=== PATIENT | female | born 1945 | race Caucasian/White ===

== ENCOUNTER 2017-11-18 14:54 | Inpatient (IN) | payer MEDICARE ==
--- NOTE | 2017-11-18 15:27 | ED Physician Documentation ---
History of Present Illness - Stated complaint Stated Complaint: PE ROLL OUT - Chief complaint Chief Complaint: Resp - Additonal information Additional information: hx from pt 72 female sick for abput 3 weeks first dyspnea then dry cough weak all over no fever no chest pain no abd pain no NV one epsiode of diarrhea no leg pain no leg swelling strong fhx CAD no personal CAD no lung dz no travel no sick contacts ex smoker seen in clinic initially impression was URI txed with augmentin but clinician felt pt HR concerning and she was borderline hypoxic so sent to ED for further eval Review of Systems Constitutional: reports: Fatigue. denies: Fever, Chills Throat: denies: Sore throat Cardiac: denies: Chest pain / pressure Respiratory: reports: Dyspnea, Cough. denies: Hemoptysis, Wheezing GI: reports: Diarrhea (X1). denies: Abdominal Pain, Nausea, Vomiting, Bloody / black stool : denies: Dysuria Endocrine: denies: Easy bruising / bleeding Immunocompromised: denies: Immunocompromised PD PAST MEDICAL HISTORY - Present Medications Home Medications: Ambulatory Orders Medication Instructions Recorded Confirmed Cholecalciferol (Vitamin D3) 4,000 units PO DAILY 11/18/17 11/18/17 [Vitamin D3] Glucosamine Sulfate Dipot Chlr 1,000 mg PO BID 11/18/17 11/18/17 [Glucosamine Sulfate] Multivitamin [Theragran] 1 tab PO DAILY 11/18/17 11/18/17 [place]-3/Dha/Epa/Fish Oil [Fish Oil 1 gm PO DAILY 11/18/17 11/18/17 1,000 mg Softgel] Zinc 50 mg PO DAILY 11/18/17 11/18/17 - Allergies Allergies/Adverse Reactions: Allergies Allergy/AdvReac Type Severity Reaction Status Date / Time acetaminophen [From Percocet] Allergy Rash Verified 11/18/17 15:13 oxycodone [From Percocet] Allergy Rash Verified 11/18/17 15:13 PD ED PE NORMAL - Vitals Vital signs reviewed: Yes (tachy tachypneic hypoxic) - General General: Alert and oriented X 3 - Cardiac Cardiac: RRR - Respiratory Respiratory: No respiratory distress, Other (tachypneic but clear) - Abdomen Abdomen: Soft, Non tender - Derm Derm: Normal color - Extremities Extremities: No edema, No calf tenderness / cord - Neuro Neuro: Alert and oriented X 3, No motor deficit Eye Opening: Spontaneous Motor: Obeys Commands Verbal: Oriented GCS Score: 15 Results - Vitals Vitals: Vital Signs - 24 hr 11/18/17 11/18/17 11/18/17 15:09 15:27 16:18 Temperature 36.2 C L Heart Rate 116 H 142 H 135 H Respiratory 18 26 H 17 Rate Blood Pressure 145/92 H 150/92 H O2 Saturation 93 93 94 Oxygen O2 Source Nasal cannula Oxygen Flow Rate 2 - EKG (time done) 1520 Rate: Rate (enter#) (144) Rhythm: Sinus tachycardia (probaly - culd be exctopic atrial source, Ps visible best in I II) Intervals: Normal AK Ischemia: ST elevation c/w ischemia (inferior with associated Q waves) - Labs Labs: Laboratory Tests 11/18/17 11/18/17 11/18/17 15:35 15:35 15:35 WBC 11.1 H RBC 4.72 Hgb 13.5 Hct 40.7 MCV 86.4 MCH 28.7 MCHC 33.2 RDW 14.3 Plt Count 346 MPV 7.6 L Neut # (Auto) 7.7 H Lymph # (Auto) 2.2 Haakon # (Auto) 0.8 Eos # (Auto) 0.3 Baso # (Auto) 0.1 Absolute Nucleated RBC 0.00 Nucleated RBC % 0.0 PT 12.8 H INR 1.1 APTT 26.1 Sodium 137 Potassium 4.4 Chloride 100 L Carbon Dioxide 27 Anion Gap 10.0 BUN 15 Creatinine 0.7 Estimated GFR (MDRD) 82 L Glucose 153 H Lactic Acid Calcium 9.6 Total Bilirubin 0.8 AST 27 ALT 29 Alkaline Phosphatase 89 Troponin I B-Natriuretic Peptide Total Protein 8.4 H Albumin 3.6 Globulin 4.8 H Albumin/Globulin Ratio 0.8 L Lipase 37 11/18/17 11/18/17 11/18/17 15:35 15:35 15:35 WBC RBC Hgb Hct MCV MCH MCHC RDW Plt Count MPV Neut # (Auto) Lymph # (Auto) Haakon # (Auto) Eos # (Auto) Baso # (Auto) Absolute Nucleated RBC Nucleated RBC % PT INR APTT Sodium Potassium Chloride Carbon Dioxide Anion Gap BUN Creatinine Estimated GFR (MDRD) Glucose Lactic Acid 1.5 Calcium Total Bilirubin AST ALT Alkaline Phosphatase Troponin I < 0.04 B-Natriuretic Peptide 52 Total Protein Albumin Globulin Albumin/Globulin Ratio Lipase - Rads (name of study) CXR Radiology: See rad report (multifocal pna vs masses) CTPA Radiology: See rad report (multifocal mod to large consolidative masslike opacifications OREN and phan lower lobes, severe multifocal pna vs malgnancy. Also lyphadenopathy infectious vs mets. SMall L pleural effuson. Motrion artifact in the R lower lobe arteries and subsegmental arteries precludes eval for PE - d/w rad and she notes some "dark spots" but due to motrion cannot determine if PE or not. After discussion we agreed best plan of action would be to tx pt for infection and for PE and reimage with another CTPA in about 2 days to help clarify if infectious (will be improving) or malignant and hopefully with improved resp status will have less motion artifact and PE concern can be clarified) PD MEDICAL DECISION MAKING - ED course ED course: CXR = infection vs mass so got CT PA even CT cannot clarify if infection of mass furthermore cannot rule out PE due to resp motion artifact after d/w hospitalist and radiology agree plan to tx for infection and PE and redo CTPA in about 48 to clarify if PE or not and infectious vs malignant assuming this is infectious pt meets criteria for sepsis - gave 30 cc/kg IVG and rocephin zmax for ICU level CAP admittedly she could be tachy from PE, hypoxia etc as well - even with CT cannot confirm an infectious source EMR does not allow possible sepsis so added that to diagnoses but in reality remains to be confirmed spoke to hospitalist at 1805 - Sepsis Event Vital Signs: Vital Signs - 24 hr 11/18/17 11/18/17 11/18/17 15:09 15:27 16:18 Temperature 36.2 C L Heart Rate 116 H 142 H 135 H Respiratory 18 26 H 17 Rate Blood Pressure 145/92 H 150/92 H O2 Saturation 93 93 94 Oxygen O2 Source Nasal cannula Oxygen Flow Rate 2 Departure - Departure Disposition: 66 [facility] DC/Xfer Clinical Impression: Hypoxia, Lung mass, Abnormal EKG Pneumonia Qualifiers: Pneumonia type: due to unspecified organism Laterality: bilateral Lung location : unspecified part of lung Qualified Code(s): J18.9 - Pneumonia, unspecified organism Sepsis Qualifiers: Sepsis type: sepsis due to unspecified organism Qualified Code(s): A41.9 - Sepsis, unspecified organism
[2017-11-18] MEDS ORDERED: SODIUM CHLORIDE 0.9% 3,000 ML IV ONE (15:39)
--- NOTE | 2017-11-18 15:41 | XRAY Report ---
Procedure Date: 11/18/2017 Accession Number: [id number] / [id number] Procedure: XR - Chest 1 View X-Ray CPT Code: 79016 FULL RESULT: EXAM: CHEST RADIOGRAPHY EXAM DATE: 11/18/2017 03:32 PM. CLINICAL HISTORY: Chest pain. Shortness of breath. COMPARISON: None. TECHNIQUE: 1 view. FINDINGS: Lungs/Pleura: Focal opacity in the right perihilar region is suspicious for a mass measuring just over 4 cm. Focal consolidation is present medially in the left upper lung zone. Left basilar atelectasis or infiltrate and elevation of the left hemidiaphragm. Mediastinum: Within exam limitations, the cardiomediastinal contour is normal. Other: None. IMPRESSION: 1. Findings suspicious for a right perihilar mass. 2. Focal consolidation in the left upper lung zone medially and left basilar airspace disease. Underlying mass is not excluded. 3. Further evaluation of bilateral lung abnormalities is recommended with CT chest. RADIA
[2017-11-18 15:43] LABS: BASOPHILS # (AUTO) 0.1 10^3/uL (0.0-0.1); EOSINOPHILS # (AUTO) 0.3 10^3/uL (0.0-0.7); HGB - HEMOGLOBIN 13.5 g/dL (12.0-16.0); LYMPHOCYTES # (AUTO) 2.2 10^3/uL (1.5-3.5); NEUTROPHILS # (AUTO) 7.7 10^3/uL (1.5-6.6)
[2017-11-18] MEDS ORDERED: cefTRIAXone 1 GM in SODIUM CHLORIDE 0.9% MINIBAG 100 ML IV STA (15:44)
[2017-11-18] MEDS ORDERED: AZITHROMYCIN INJ 500 MG in SODIUM CHLORIDE 0.9% 250 ML IV STA (15:44)
[2017-11-18 15:47] LABS: BASOPHILS % (AUTO) 0.6 %; LYMPHOCYTES % (AUTO) 19.6 %; MEAN CORPUSCULAR HEMOGLOBIN 28.7 pg (27.0-31.0); MEAN CORPUSCULAR HGB CONC 33.2 g/dL (32.0-36.0); MEAN CORPUSCULAR VOLUME 86.4 fL (81.0-99.0); MEAN PLATELET VOLUME 7.6 fL (7.9-10.8); MONOCYTES # (AUTO) 0.8 10^3/uL (0.0-1.0); MONOCYTES % (AUTO) 7.2 %; NEUTROPHILS % (AUTO) 69.6 %; PLT - PLATELET COUNT 346 10^3/uL (130-450); RED BLOOD COUNT 4.72 10^6/uL (4.20-5.40); RED CELL DISTRIBUTION WIDTH 14.3 % (12.0-15.0); WHITE BLOOD COUNT 11.1 x10^3/uL (4.8-10.8)
[2017-11-18 15:49] LABS: INR 1.1 (0.8-1.2); PT - PROTHROMBIN TIME 12.8 secs (9.9-12.6)
[2017-11-18 15:56] LABS: ALBUMIN 3.6 g/dL (3.2-5.5); ALBUMIN/GLOBULIN RATIO 0.8 (1.0-2.2); BILIRUBIN,TOTAL 0.8 mg/dL (0.2-1.0); CALCIUM 9.6 mg/dL (8.5-10.3); CREATININE 0.7 mg/dL (0.4-1.0); TOTAL PROTEIN 8.4 g/dL (6.7-8.2)
[2017-11-18] MEDS ORDERED: IOPAMIDOL-300 100 ML VIAL ONE (16:59)
[2017-11-18] MEDS ORDERED: IOPAMIDOL-300 100 ML VIAL IVP ONE (17:30)
--- NOTE | 2017-11-18 17:58 | CT Report ---
Procedure Date: 11/18/2017 Accession Number: [id number] / [id number] Procedure: CT - Chest Angio (PE) CPT Code: FULL RESULT: EXAM: CT ANGIOGRAM CHEST EXAM DATE: 11/18/2017 05:27 PM. CLINICAL HISTORY: Shortness of air, hypoxia, tachycardia, tachypneic. COMPARISON: Chest 1 view 11/18/2017. TECHNIQUE: Routine helical imaging was performed through the chest in the pulmonary arterial phase. IV Contrast: 80 mL, Isovue 300. Reconstructions: Coronal 3-D MIP reconstructions.Sagittal and coronal. In accordance with CT protocol optimization, one or more of the following dose reduction techniques were utilized for this exam: automated exposure control, adjustment of mA and/or KV based on patient size, or use of iterative reconstructive technique. FINDINGS: Mediastinum: No thoracic aortic aneurysm or dissection. Prominent heart size. Coronary artery calcification. Right hilar lymphadenopathy 1.8 cm. Another right low hilar lymphadenopathy 1.4 cm. Low subcarinal borderline lymphadenopathy 1 cm. Pulmonary arteries: Motion artifact limited, especially at the right lower lobe and right lower lobe segmental pulmonary emboli are not excluded. Otherwise, no definite pulmonary emboli seen. Lungs: Large consolidated masslike opacity seen in the left upper lobe extending to the left hilum surrounding left upper lobe vessels and bronchi. Moderate consolidative masslike opacification located more centrally in the left lower lobe extending to the left hilum with air bronchograms. Moderate right lower lobe consolidative masslike opacification centrally in the right lower lobe. Very small left pleural effusion. No pneumothorax. Motion artifact limited. Upper abdomen: No acute findings. No acute bone findings. IMPRESSION: 1. Multifocal moderate to large consolidative masslike opacifications seen in the left upper lobe and bilateral lower lobes, large in the left upper lobe, could represent severe multifocal pneumonia versus lung malignancy. Follow-up is recommended. Mediastinal and right hilar lymphadenopathy, could be reactive versus metastasis. 2. Very small left pleural effusion. 3. Pulmonary arteries: Motion artifact limited, especially at the right lower lobe and right lower lobe segmental pulmonary emboli are not excluded. Otherwise, definite pulmonary emboli seen. RADIA ADDENDUM: 11/18/17 18:22 3. Pulmonary arteries: Motion artifact limited, especially at the right lower lobe and right lower lobe segmental pulmonary emboli are not excluded. Otherwise, no definite pulmonary emboli seen.
[2017-11-18] MEDS ORDERED: IBUPROFEN 600 MG TABLET PO PRN (18:28)
[2017-11-18] MEDS ORDERED: SODIUM CHLORIDE FLUSH 0.9% 10 ML SYRINGE IVP PRN (18:28)
[2017-11-18] MEDS ORDERED: ENOXAPARIN 100 MG/ML SYRINGE SUBQ STA (18:28)
[2017-11-18] MEDS ORDERED: cefTRIAXone 2 GM in SODIUM CHLORIDE 0.9% MINIBAG 100 ML IV STA (18:33)
[2017-11-18] MEDS: D5.45NS W/20 MEQ KCL 1,000 ML IV SCH (20:44)
[2017-11-19] MEDS: SODIUM CHLORIDE FLUSH 0.9% 10 ML SYRINGE IVP SCH ×4 (03:29→23:38)
[2017-11-19] MEDS: D5.45NS W/20 MEQ KCL 1,000 ML IV SCH ×2 (05:56→16:32)
[2017-11-19 07:29] LABS: MEAN CORPUSCULAR HGB CONC 33.3 g/dL (32.0-36.0); MEAN CORPUSCULAR VOLUME 87.1 fL (81.0-99.0); MEAN PLATELET VOLUME 7.2 fL (7.9-10.8); RED BLOOD COUNT 4.13 10^6/uL (4.20-5.40); RED CELL DISTRIBUTION WIDTH 14.8 % (12.0-15.0); WHITE BLOOD COUNT 7.7 x10^3/uL (4.8-10.8)
[2017-11-19 07:39] LABS: CALCIUM 8.6 mg/dL (8.5-10.3); CREATININE 0.5 mg/dL (0.4-1.0)
--- NOTE | 2017-11-19 08:33 | HISTORY & PHYSICAL EXAMINATION ---
Chief Complaint - Chief Complaint Chief Complaint: shortness of breath History of Present Illness - Admitted From Admitted From:: Home - History Obtained From History obtained from: Patient, ED physician History - Past Medical History Cardiovascular: reports: None Respiratory: reports: None Neuro: reports: None Endocrine/Autoimmune: reports: None GI: reports: None : reports: None HEENT: reports: None Psych: reports: None Musculoskeletal: reports: None Derm: reports: None MRSA Hx?: No Other Past Medical History: The patient is someone who does not see doctors. Her last medical visit was about 8 years ago when she had an appendectomy, and the last time before that was 30 or more years ago. - Past Surgical History General: reports: Appendectomy /SLEEP MANAGER: reports: Hysterectomy HEENT: reports: Tonsil/Adenoidectomy - Family & Social History Family History: Mother: , Diabetes, Type 2, PA, Father: , PA, Sister: , Brother: , Other family: Family History Comment/Other: The patient comes from a family that did not discuss medical problems very often. Her parents both from heart attacks and her mother had diabetes. There are 2 sisters and 3 brothers who have already previously of causes unknown to the patient. A daughter is alive but has had a history of breast cancer and a son from lung cancer. Living arrangement: At home Living Situation: Alone - Substance History Use: Uses substance without health or social issues: Alcohol Abuse: Recurrent use of substance despite neg consequences: NONE Dependence: Experiences withdrawal or developed tolerances: NONE Tobacco Details: Cigarettes (The patient quit smoking 3 years ago and has a 57 year history of smoking 3/4-1 pack per day.) Meds/Allgy - Home Medications Home Medications: Ambulatory Orders Medication Instructions Recorded Confirmed Cholecalciferol (Vitamin D3) 4,000 units PO DAILY 11/18/17 11/18/17 [Vitamin D3] Glucosamine Sulfate Dipot Chlr 1,000 mg PO BID 11/18/17 11/18/17 [Glucosamine Sulfate] Multivitamin [Theragran] 1 tab PO DAILY 11/18/17 11/18/17 [place]-3/Dha/Epa/Fish Oil [Fish Oil 1 gm PO DAILY 11/18/17 11/18/17 1,000 mg Softgel] Zinc 50 mg PO DAILY 11/18/17 11/18/17 - Allergies Allergies/Adverse Reactions: Allergies Allergy/AdvReac Type Severity Reaction Status Date / Time acetaminophen [From Percocet] Allergy Rash Verified 11/18/17 15:13 oxycodone [From Percocet] Allergy Rash Verified 11/18/17 15:13 Review of Systems - Constitutional Constitutional: reports: Fatigue, Weakness. denies: Fever, Chills, Malaise - Eyes Eyes: denies: Pain, Irritation, Amaurosis, Blurred vision, Dipolpia - Ears, Nose & Throat Ears, Nose & Throat: denies: Ear pain, Hearing loss, Hearing aids, Tinnitus, Vertigo, Nasal pain, Nasal discharge - Cardiovascular Cariovascular: reports: Exertional dyspnea, Decr. exercise tolerance. denies: Irregular heart rate, Palpitations, Chest pain, Edema, Syncope - Respiratory Respiratory: reports: SOB at rest, SOB with exertion. denies: Cough, Sputum production, Wheezing, Snoring, Hemoptysis, Orthopnea - Gastrointestinal Gastrointestinal: denies: Abdominal pain, Abdominal distention, Constipation, Diarrhea, Change in bowel habits, Rectal bleeding - Genitourinary Genitourinary: denies: Dysuria, Frequency, Urgency, Hematuria - Musculoskeletal Musculoskeletal: denies: Muscle pain, Back pain, Muscle aches, Stiffness - Integumentary Integumentary: denies: Rash, Pruritis, Lesions, Dryness - Neurological Neurological: denies: General weakness, Focal weakness, Headache, Dizziness - Psychiatric Psychiatric: denies: Depression, Anxiety, Suicidal, Hallucinations - Endocrine Endocrine: denies: Polyuria, Polydypsia, Polyphagia - Hematologic/Lymphatic Hematologic/Lymphatic: denies: Anemia, Bruising, Petechiae, Lymphadenopathy - All Other Systems All Other Systems: reports: Reviewed and negative Exam - Vital Signs Reviewed Vital Signs: Yes Vital Signs: Vital Signs x48h Temp Pulse Resp BP Pulse Ox 11/19/17 07:57 36.9 C 93 18 156/73 H 95 11/19/17 06:00 94 20 184/90 H 96 11/19/17 04:14 36.8 C 96 18 176/81 H 93 - Physical Exam General Appearance: positive: No acute distress, Alert Eyes Bilateral: positive: Normal inspection, PERRL, EOMI, No lid inflammation, Conjunctivae nml, No scleral icterus ENT: positive: Pharynx nml, No signs of dehydration, Other (poor dentition). negative: ENT inspection nml Neck: positive: Nml inspection, Thyroid nml, No JVD, Trachea midline. negative : Thyromegaly Respiratory: positive: Chest non-tender, No respiratory distress, Breath sounds nml. negative: Wheezes, Rales, Rhonchi Cardiovascular: positive: Regular rate & rhythm, No murmur, No gallop Peripheral Pulses: positive: 1+ Abdomen: positive: Non-tender, No organomegaly, Nml bowel sounds, No distention. negative: Guarding, Rebound Back: positive: Nml inspection. negative: CVA tenderness (R), CVA tenderness (L ) Skin: positive: Color nml, No rash, Warm, Dry. negative: Cyanosis Extremities: positive: Non-tender, Full ROM, Nml appearance, No pedal edema Neurologic/Psychiatric: positive: Oriented x3, CN's nml (2-12), Motor nml, Sensation nml, Mood/affect nml Conclusion/Plan - Problem List (1) Shortness of breath at rest Conclusion/Plan: The patient is currently short of breath but is responding well to supplemental oxygen. The cause of her shortness of breath is either bilateral pneumonia or likely malignancy with postobstructive pneumonia. Chest x-ray and CTA of the chest failed to show any definite underlying cause and could not differentiate between the bilateral pneumonia and the masses. CTA was negative for any pulmonary emboli. I spoke with the [facility] radiologist and the radiologist at [facility] and both are in agreement that the course of treatment should be to treat the pneumonia with hopes of resolution and if this does not resolve to refer the patient for bronchoscopy/biopsy. I have started the patient on azithromycin and Rocephin daily, and will obtain serial chest x-rays. If there is no resolution or improvement in 3 days I will order a bronchoscopy. - Lab Results Lab results reviewed: Yes Fish Bones: 11/19/17 07:20 11/19/17 07:20 - Diagnostic Imaging Results Diagnostic Imaging Results: positive: Discussed with radiologist (I spoke with the [facility] radiologist and the radiologist over at [facility] and both agree that the course of treatment should be treating pneumonia and looking for resolution and if this does not occur to refer the patient for bronchoscopy/biopsy.) Diagnostic Imaging Results Comments: EXAM: CT ANGIOGRAM CHEST EXAM DATE: 11/18/2017 05:27 PM. CLINICAL HISTORY: Shortness of air, hypoxia, tachycardia, tachypneic. COMPARISON: Chest 1 view 11/18/2017. TECHNIQUE: Routine helical imaging was performed through the chest in the pulmonary arterial phase. IV Contrast: 80 mL, Isovue 300. Reconstructions: Coronal 3-D MIP reconstructions.Sagittal and coronal. In accordance with CT protocol optimization, one or more of the following dose reduction techniques were utilized for this exam: automated exposure control, adjustment of mA and/or KV based on patient size, or use of iterative reconstructive technique. FINDINGS: Mediastinum: No thoracic aortic aneurysm or dissection. Prominent heart size. Coronary artery calcification. Right hilar lymphadenopathy 1.8 cm. Another right low hilar lymphadenopathy 1.4 cm. Low subcarinal borderline lymphadenopathy 1 cm. Pulmonary arteries: Motion artifact limited, especially at the right lower lobe and right lower lobe segmental pulmonary emboli are not excluded. Otherwise, no definite pulmonary emboli seen. Lungs: Large consolidated masslike opacity seen in the left upper lobe extending to the left hilum surrounding left upper lobe vessels and bronchi. Moderate consolidative masslike opacification located more centrally in the left lower lobe extending to the left hilum with air bronchograms. Moderate right lower lobe consolidative masslike opacification centrally in the right lower lobe. Very small left pleural effusion. No pneumothorax. Motion artifact limited. Upper abdomen: No acute findings. No acute bone findings. IMPRESSION: 1. Multifocal moderate to large consolidative masslike opacifications seen in the left upper lobe and bilateral lower lobes, large in the left upper lobe, could represent severe multifocal pneumonia versus lung malignancy. Follow-up is recommended. Mediastinal and right hilar lymphadenopathy, could be reactive versus metastasis. 2. Very small left pleural effusion. 3. Pulmonary arteries: Motion artifact limited, especially at the right lower lobe and right lower lobe segmental pulmonary emboli are not excluded. Otherwise, definite pulmonary emboli seen. RADIA ADDENDUM: 11/18/17 18:22 3. Pulmonary arteries: Motion artifact limited, especially at the right lower lobe and right lower lobe segmental pulmonary emboli are not excluded. Otherwise, no definite pulmonary emboli seen. EXAM: CHEST RADIOGRAPHY EXAM DATE: 11/18/2017 03:32 PM. CLINICAL HISTORY: Chest pain. Shortness of breath. COMPARISON: None. TECHNIQUE: 1 view. FINDINGS: Lungs/Pleura: Focal opacity in the right perihilar region is suspicious for a mass measuring just over 4 cm. Focal consolidation is present medially in the left upper lung zone. Left basilar atelectasis or infiltrate and elevation of the left hemidiaphragm. Mediastinum: Within exam limitations, the cardiomediastinal contour is normal. Other: None. IMPRESSION: 1. Findings suspicious for a right perihilar mass. 2. Focal consolidation in the left upper lung zone medially and left basilar airspace disease. Underlying mass is not excluded. 3. Further evaluation of bilateral lung abnormalities is recommended with CT chest. Core Measures - Anticipated LOS I expect patient to be DC'd or transferred within 96 hours.: Yes - DVT/VTE - Prophylaxis VTE/DVT Device ordered at admit?: Yes
[2017-11-19] MEDS: LISINOPRIL 20 MG TABLET PO SCH (09:31)
[2017-11-19] MEDS: POLYETHYLENE GLYCOL 3350 17 GM PACKET PO SCH (09:32)
[2017-11-19] MEDS: IPRATROPIUM/ALBUTEROL 3 ML NEB INH SCH ×3 (10:35→18:08)
[2017-11-19] MEDS: AZITHROMYCIN INJ 500 MG in SODIUM CHLORIDE 0.9% 250 ML IV SCH (16:32)
[2017-11-19] MEDS: cefTRIAXone 2 GM in SODIUM CHLORIDE 0.9% MINIBAG 100 ML IV SCH (18:25)
--- NOTE | 2017-11-19 18:55 | PROVIDER PROGRESS NOTE ---
Subjective - Prog Note Date Prog Note Date: 11/19/17 Prog Note Time: 18:00 - Subjective Subjective: Patient is short of breath but better with supplemental oxygen. She denies any pain, fevers, chills, or any other new problems. Current Medications - Current Medications Current Medications: Active Medications Generic Name Dose Route Start Last Admin Trade Name Freq PRN Reason Stop Dose Admin Albuterol/Ipratropium 3 ml 11/19/17 11:00 11/19/17 18:08 Duoneb INH 3 ml RTQID ROLDAN Administration Azithromycin 500 mg/ Sodium 250 mls @ 250 mls/hr 11/19/17 16:00 11/19/17 17: 46 Chloride IV Infused Q24H ROLDAN Infusion Potassium Chloride/Dextrose/Sod Cl 1,000 mls @ 100 mls/hr 11/18/17 19:00 09/01 16:32 D5.45ns W/20 Meq Kcl IV 100 mls/hr .Q10H ROLDAN Administration Ceftriaxone Sodium 2 gm/ 100 mls @ 200 mls/hr 11/19/17 18:00 11/19/17 18:25 Sodium Chloride IV 200 mls/hr Q24H ROLDAN Administration Ibuprofen 600 mg 11/18/17 18:28 Motrin PO Q6HR PRN Pain 1 to 4 Lisinopril 20 mg 11/19/17 09:00 11/19/17 09:31 Zestril PO 20 mg DAILY ROLDAN Administration Polyethylene Glycol 17 gm 11/19/17 09:00 11/19/17 09:32 Miralax PO Not Given DAILY ROLDAN Sodium Chloride 10 ml 11/18/17 18:28 Normal Saline Flush 0.9% IVP PRN PRN NEEDED PER PROVIDER ORDERS Sodium Chloride 10 ml 11/19/17 01:00 11/19/17 15:35 Normal Saline Flush 0.9% IVP Not Given 0100,0900,1700 ROLDAN Cholecalciferol (Vitamin D3) [Vitamin D3] 4,000 units PO DAILY 11/18/17 Glucosamine Sulfate Dipot Chlr [Glucosamine Sulfate] 1,000 mg PO BID 11/18/17 Multivitamin [Theragran] 1 tab PO DAILY 11/18/17 [place]-3/Dha/Epa/Fish Oil [Fish Oil 1,000 mg Softgel] 1 gm PO DAILY 11/18/17 Zinc 50 mg PO DAILY 11/18/17 Objective - Vital Signs/Intake & Output Reviewed Vital Signs: Yes Vital Signs: Vital Signs x48h Temp Pulse Pulse Resp BP Pulse Ox 11/19/17 18:09 81 17 11/19/17 15:58 37.0 C 89 20 149/66 H 97 11/19/17 15:08 82 17 11/19/17 11:30 37.0 C 88 20 148/63 H 95 Intake & Output: Intake & Output 11/16/17 11/17/17 11/18/17 11/19/17 23:59 23:59 23:59 23:59 Intake Total 3200 3880 Balance 3200 3880 - Objective General Appearance: positive: No acute distress, Alert Eyes Bilateral: positive: Normal inspection, PERRL, EOMI, No lid inflammation, Conjunctivae nml, No scleral icterus ENT: positive: ENT inspection nml, Pharynx nml, No signs of dehydration Neck: positive: Nml inspection, Thyroid nml, No JVD, Trachea midline. negative : Thyromegaly Respiratory: positive: Chest non-tender, No respiratory distress, Other (Lung sounds are diminished in all eric). negative: Wheezes, Rales, Rhonchi Cardiovascular: positive: Regular rate & rhythm, No murmur, No gallop Abdomen: positive: Non-tender, No organomegaly, Nml bowel sounds, No distention. negative: Guarding, Rebound Back: positive: Nml inspection. negative: CVA tenderness (R), CVA tenderness (L ) Skin: positive: Color nml, No rash, Warm, Dry. negative: Cyanosis Extremities: positive: Non-tender, Full ROM, Nml appearance, No pedal edema Neurologic/Psychiatric: positive: Oriented x3, CN's nml (2-12), Motor nml, Sensation nml, Mood/affect nml - Lab Results Fish Bones: 11/19/17 07:20 11/19/17 07:20 Other Labs: Lab Results x24hrs 11/19/17 11/19/17 Range/Units 07:20 07:20 WBC 7.7 (4.8-10.8) x10^3/uL RBC 4.13 L (4.20-5.40) 10^6/uL Hgb 12.0 (12.0-16.0) g/dL Hct 35.9 L (37.0-47.0) % MCV 87.1 (81.0-99.0) fL MCH 29.0 (27.0-31.0) pg MCHC 33.3 (32.0-36.0) g/dL RDW 14.8 (12.0-15.0) % Plt Count 270 (130-450) 10^3/uL MPV 7.2 L (7.9-10.8) fL Sodium 136 (135-145) mmol/L Potassium 4.2 (3.5-5.0) mmol/L Chloride 104 (101-111) mmol/L Carbon Dioxide 26 (21-32) mmol/L Anion Gap 6.0 (6-13) BUN 10 (6-20) mg/dL Creatinine 0.5 (0.4-1.0) mg/dL Estimated GFR (MDRD) 121 (>89) Glucose 115 H (70-100) mg/dL Calcium 8.6 (8.5-10.3) mg/dL ABX Reporting Has patient been on IV antibiotics over the past 48 hours?: Yes Assessment/Plan - Problem List (1) Shortness of breath at rest Impression: The patient is currently short of breath but is responding well to supplemental oxygen. The cause of her shortness of breath is either bilateral pneumonia or likely malignancy with postobstructive pneumonia. Chest x-ray and CTA of the chest failed to show any definite underlying cause and could not differentiate between the bilateral pneumonia and the masses. CTA was negative for any pulmonary emboli. I spoke with the hospital radiologist and the radiologist at [facility] and both are in agreement that the course of treatment should be to treat the pneumonia with hopes of resolution and if this does not resolve to refer the patient for bronchoscopy/biopsy. I have started the patient on azithromycin and Rocephin daily, and will obtain serial chest x-rays. If there is no resolution or improvement in 3 days I will order a bronchoscopy. (2) COPD (chronic obstructive pulmonary disease) Impression: The patient has never been formally diagnosed with COPD but she is short of breath and has a 50+ pack year history of smoking. She quit smoking 3 years ago. We will give her bronchodilators and nebulizer treatments as needed. (3) Hypertension Impression: Patient's blood pressure has been elevated since her admission. I started her on lisinopril earlier, and we will add hydrochlorothiazide to this regimen.
[2017-11-19] MEDS: hydroCHLOROthiazide 12.5 MG CAPSULE PO SCH (19:27)
[2017-11-20] MEDS: D5.45NS W/20 MEQ KCL 1,000 ML IV SCH ×3 (03:26→20:49)
[2017-11-20 06:05] LABS: CREATININE 0.6 mg/dL (0.4-1.0)
[2017-11-20 06:10] LABS: MEAN CORPUSCULAR HEMOGLOBIN 29.1 pg (27.0-31.0); MEAN CORPUSCULAR HGB CONC 33.2 g/dL (32.0-36.0); MEAN CORPUSCULAR VOLUME 87.8 fL (81.0-99.0); MEAN PLATELET VOLUME 7.3 fL (7.9-10.8); RED BLOOD COUNT 4.13 10^6/uL (4.20-5.40); RED CELL DISTRIBUTION WIDTH 14.5 % (12.0-15.0); WHITE BLOOD COUNT 8.2 x10^3/uL (4.8-10.8)
[2017-11-20] MEDS: IPRATROPIUM/ALBUTEROL 3 ML NEB INH SCH ×4 (07:11→20:25)
[2017-11-20] MEDS: LISINOPRIL 20 MG TABLET PO SCH (08:14)
[2017-11-20] MEDS: hydroCHLOROthiazide 12.5 MG CAPSULE PO SCH (08:14)
[2017-11-20] MEDS: POLYETHYLENE GLYCOL 3350 17 GM PACKET PO SCH (08:14)
[2017-11-20] MEDS: SODIUM CHLORIDE FLUSH 0.9% 10 ML SYRINGE IVP SCH ×3 (08:16→23:57)
[2017-11-20] MEDS: AZITHROMYCIN INJ 500 MG in SODIUM CHLORIDE 0.9% 250 ML IV SCH (16:27)
--- NOTE | 2017-11-20 16:50 | PROVIDER PROGRESS NOTE ---
Subjective - Prog Note Date Prog Note Date: 11/20/17 Prog Note Time: 16:45 - Subjective Pt reports feeling: Improved Subjective: Patient says she is breathing easier and just feels a little bit stronger and better today. She denies any fevers or chills, pain, or any other new problems. Current Medications - Current Medications Current Medications: Active Medications Generic Name Dose Route Start Last Admin Trade Name Freq PRN Reason Stop Dose Admin Albuterol/Ipratropium 3 ml 11/19/17 11:00 11/20/17 15:20 Duoneb INH 3 ml RTQID ROLDAN Administration Hydrochlorothiazide 12.5 mg 11/19/17 19:00 11/20/17 08:14 Hydrodiuril PO 12.5 mg DAILY ROLDAN Administration Azithromycin 500 mg/ Sodium 250 mls @ 250 mls/hr 11/19/17 16:00 11/20/17 16: 27 Chloride IV 250 mls/hr Q24H ROLDAN Administration Potassium Chloride/Dextrose/Sod Cl 1,000 mls @ 100 mls/hr 11/18/17 19:00 10/02 12:34 D5.45ns W/20 Meq Kcl IV 100 mls/hr .Q10H ROLDAN Administration Ceftriaxone Sodium 2 gm/ 100 mls @ 200 mls/hr 11/19/17 18:00 11/19/17 19:03 Sodium Chloride IV Infused Q24H ROLDAN Infusion Ibuprofen 600 mg 11/18/17 18:28 11/20/17 03:27 Motrin PO 600 mg Q6HR PRN Administration Pain 1 to 4 Lisinopril 20 mg 11/19/17 09:00 11/20/17 08:14 Zestril PO 20 mg DAILY ROLDAN Administration Polyethylene Glycol 17 gm 11/19/17 09:00 11/20/17 08:14 Miralax PO Not Given DAILY ROLDAN Sodium Chloride 10 ml 11/18/17 18:28 Normal Saline Flush 0.9% IVP PRN PRN NEEDED PER PROVIDER ORDERS Sodium Chloride 10 ml 11/19/17 01:00 11/20/17 15:45 Normal Saline Flush 0.9% IVP Not Given 0100,0900,1700 ROLDAN Cholecalciferol (Vitamin D3) [Vitamin D3] 4,000 units PO DAILY 11/18/17 Glucosamine Sulfate Dipot Chlr [Glucosamine Sulfate] 1,000 mg PO BID 11/18/17 Multivitamin [Theragran] 1 tab PO DAILY 11/18/17 [place]-3/Dha/Epa/Fish Oil [Fish Oil 1,000 mg Softgel] 1 gm PO DAILY 11/18/17 Zinc 50 mg PO DAILY 11/18/17 Objective - Vital Signs/Intake & Output Reviewed Vital Signs: Yes Vital Signs: Vital Signs x48h Temp Pulse Pulse Resp BP Pulse Ox 11/20/17 16:21 37.1 C 90 18 142/67 H 94 11/20/17 15:21 80 16 11/20/17 13:00 37.2 C 82 18 122/48 L 96 11/20/17 11:29 90 18 Intake & Output: Intake & Output 11/17/17 11/18/17 11/19/17 11/20/17 23:59 23:59 23:59 23:59 Intake Total 3200 4280 2733.333 Balance 3200 4280 2733.333 - Objective General Appearance: positive: No acute distress, Alert Eyes Bilateral: positive: Normal inspection, PERRL, EOMI, No lid inflammation, Conjunctivae nml, No scleral icterus ENT: positive: ENT inspection nml, Pharynx nml, No signs of dehydration Neck: positive: Nml inspection, Thyroid nml, No JVD, Trachea midline. negative : Thyromegaly Respiratory: positive: Chest non-tender, No respiratory distress, Breath sounds nml. negative: Wheezes, Rales, Rhonchi Cardiovascular: positive: Regular rate & rhythm, No murmur, No gallop Abdomen: positive: Non-tender, No organomegaly, Nml bowel sounds, No distention. negative: Guarding, Rebound Back: positive: Nml inspection. negative: CVA tenderness (R), CVA tenderness (L ) Skin: positive: Color nml, No rash, Warm, Dry. negative: Cyanosis Extremities: positive: Non-tender, Full ROM, Nml appearance, No pedal edema Neurologic/Psychiatric: positive: Oriented x3, CN's nml (2-12), Motor nml, Sensation nml, Mood/affect nml - Lab Results Fish Bones: 11/20/17 05:43 11/20/17 05:43 Other Labs: Lab Results x24hrs 11/20/17 11/20/17 Range/Units 05:43 05:43 WBC 8.2 (4.8-10.8) x10^3/uL RBC 4.13 L (4.20-5.40) 10^6/uL Hgb 12.0 (12.0-16.0) g/dL Hct 36.3 L (37.0-47.0) % MCV 87.8 (81.0-99.0) fL MCH 29.1 (27.0-31.0) pg MCHC 33.2 (32.0-36.0) g/dL RDW 14.5 (12.0-15.0) % Plt Count 274 (130-450) 10^3/uL MPV 7.3 L (7.9-10.8) fL Sodium 138 (135-145) mmol/L Potassium 4.2 (3.5-5.0) mmol/L Chloride 103 (101-111) mmol/L Carbon Dioxide 27 (21-32) mmol/L Anion Gap 8.0 (6-13) BUN 6 (6-20) mg/dL Creatinine 0.6 (0.4-1.0) mg/dL Estimated GFR (MDRD) 98 (>89) Glucose 120 H (70-100) mg/dL Calcium 9.0 (8.5-10.3) mg/dL - Diagnostic Imaging Diagnostic Imaging Results: positive: Final report reviewed Diagnostic Imaging Comments: EXAM: CT ANGIOGRAM CHEST EXAM DATE: 11/18/2017 05:27 PM. CLINICAL HISTORY: Shortness of air, hypoxia, tachycardia, tachypneic. COMPARISON: Chest 1 view 11/18/2017. TECHNIQUE: Routine helical imaging was performed through the chest in the pulmonary arterial phase. IV Contrast: 80 mL, Isovue 300. Reconstructions: Coronal 3-D MIP reconstructions.Sagittal and coronal. In accordance with CT protocol optimization, one or more of the following dose reduction techniques were utilized for this exam: automated exposure control, adjustment of mA and/or KV based on patient size, or use of iterative reconstructive technique. FINDINGS: Mediastinum: No thoracic aortic aneurysm or dissection. Prominent heart size. Coronary artery calcification. Right hilar lymphadenopathy 1.8 cm. Another right low hilar lymphadenopathy 1.4 cm. Low subcarinal borderline lymphadenopathy 1 cm. Pulmonary arteries: Motion artifact limited, especially at the right lower lobe and right lower lobe segmental pulmonary emboli are not excluded. Otherwise, no definite pulmonary emboli seen. Lungs: Large consolidated masslike opacity seen in the left upper lobe extending to the left hilum surrounding left upper lobe vessels and bronchi. Moderate consolidative masslike opacification located more centrally in the left lower lobe extending to the left hilum with air bronchograms. Moderate right lower lobe consolidative masslike opacification centrally in the right lower lobe. Very small left pleural effusion. No pneumothorax. Motion artifact limited. Upper abdomen: No acute findings. No acute bone findings. IMPRESSION: 1. Multifocal moderate to large consolidative masslike opacifications seen in the left upper lobe and bilateral lower lobes, large in the left upper lobe, could represent severe multifocal pneumonia versus lung malignancy. Follow-up is recommended. Mediastinal and right hilar lymphadenopathy, could be reactive versus metastasis. 2. Very small left pleural effusion. 3. Pulmonary arteries: Motion artifact limited, especially at the right lower lobe and right lower lobe segmental pulmonary emboli are not excluded. Otherwise, definite pulmonary emboli seen. RADIA ADDENDUM: 11/18/17 18:22 3. Pulmonary arteries: Motion artifact limited, especially at the right lower lobe and right lower lobe segmental pulmonary emboli are not excluded. Otherwise, no definite pulmonary emboli seen. EXAM: CHEST RADIOGRAPHY EXAM DATE: 11/18/2017 03:32 PM. CLINICAL HISTORY: Chest pain. Shortness of breath. COMPARISON: None. TECHNIQUE: 1 view. FINDINGS: Lungs/Pleura: Focal opacity in the right perihilar region is suspicious for a mass measuring just over 4 cm. Focal consolidation is present medially in the left upper lung zone. Left basilar atelectasis or infiltrate and elevation of the left hemidiaphragm. Mediastinum: Within exam limitations, the cardiomediastinal contour is normal. Other: None. IMPRESSION: 1. Findings suspicious for a right perihilar mass. 2. Focal consolidation in the left upper lung zone medially and left basilar airspace disease. Underlying mass is not excluded. 3. Further evaluation of bilateral lung abnormalities is recommended with CT chest. ABX Reporting Has patient been on IV antibiotics over the past 48 hours?: Yes Assessment/Plan - Problem List (1) Shortness of breath at rest Impression: The patient is currently short of breath but is responding well to supplemental oxygen and the antibiotics. The cause of her shortness of breath is either bilateral pneumonia or malignancy with postobstructive pneumonia. Chest x-ray and CTA of the chest failed to show any definite underlying cause and could not differentiate between the bilateral pneumonia and the masses. CTA was negative for any pulmonary emboli. I spoke with the hospital radiologist and the radiologist at [facility] and both are in agreement that the course of treatment should be to treat the pneumonia with hopes of resolution and if this does not resolve to refer the patient for bronchoscopy/biopsy. I have started the patient on azithromycin and Rocephin daily, and will obtain serial chest x- rays. If there is no resolution or improvement in 3 days I will order a bronchoscopy. (2) COPD (chronic obstructive pulmonary disease) Impression: The patient has never been formally diagnosed with COPD but she is short of breath and has a 50+ pack year history of smoking. She quit smoking 3 years ago. We will give her bronchodilators and nebulizer treatments as needed. (3) Hypertension Impression: Patient's blood pressure has been elevated since her admission. I started her on lisinopril And hydrochlorothiazide. Her blood pressures have still been elevated. I will add amlodipine.
[2017-11-20] MEDS: cefTRIAXone 2 GM in SODIUM CHLORIDE 0.9% MINIBAG 100 ML IV SCH (17:57)
[2017-11-20] MEDS ORDERED: amLODIPine 5 MG TABLET PO SCH (18:00)
[2017-11-20] MEDS ORDERED: IPRATROPIUM/ALBUTEROL 3 ML NEB INH PRN (22:26)
[2017-11-21] MEDS: D5.45NS W/20 MEQ KCL 1,000 ML IV SCH (06:15)
[2017-11-21 06:35] LABS: CALCIUM 9.3 mg/dL (8.5-10.3); CREATININE 0.5 mg/dL (0.4-1.0)
[2017-11-21 06:41] LABS: HGB - HEMOGLOBIN 12.4 g/dL (12.0-16.0); MEAN CORPUSCULAR HEMOGLOBIN 28.8 pg (27.0-31.0); MEAN CORPUSCULAR HGB CONC 32.8 g/dL (32.0-36.0); MEAN CORPUSCULAR VOLUME 87.8 fL (81.0-99.0); MEAN PLATELET VOLUME 7.3 fL (7.9-10.8); RED BLOOD COUNT 4.3 10^6/uL (4.20-5.40); RED CELL DISTRIBUTION WIDTH 14.4 % (12.0-15.0); WHITE BLOOD COUNT 9.1 x10^3/uL (4.8-10.8)
[2017-11-21] MEDS: diltiaZEM CD 120 MG CAPSULE PO SCH ×2 (08:09→09:54)
--- NOTE | 2017-11-21 08:39 | XRAY Report ---
Procedure Date: 11/21/2017 Accession Number: [id number] / [id number] Procedure: XR - Chest 1 View X-Ray CPT Code: 43106 FULL RESULT: EXAM: Chest 1 View X-Ray DATE: 11/21/2017 8:22 AM CLINICAL HISTORY: Evaluate whether pneumonia is improving COMPARISON: CT chest 11/18/2017 TECHNIQUE: Single view of the chest. FINDINGS: Bilateral pulmonary masslike consolidation is again seen. There is elevation of the left hemidiaphragm suggesting volume loss. There is no pneumothorax. There is no large pleural effusion, small pleural effusion cannot entirely excluded. The cardiomediastinal silhouette is stable. IMPRESSION: Pneumonia of this radiographic extent would typically be expected to clinically declare itself. While pneumonia is not radiographically excluded, imaging suggests underlying masslike features. In the absence of a significant white blood cell count or fever, recommend tissue diagnosis. RADIA
[2017-11-21] MEDS: LISINOPRIL 20 MG TABLET PO SCH (09:54)
[2017-11-21] MEDS: POLYETHYLENE GLYCOL 3350 17 GM PACKET PO SCH (09:55)
[2017-11-21] MEDS: SODIUM CHLORIDE FLUSH 0.9% 10 ML SYRINGE IVP SCH (09:55)
--- NOTE | 2017-11-21 11:56 | Discharge Plan ---
Discharge Plan Disposition: 02 Transfer Acute Care Hosp Condition: Fair Diet: Regular Activity Restrictions: Activity as Tolerated Shower Restrictions: No Driving Restrictions: No Weight Bearing: Full Weight No Smoking: If you smoke, Please STOP! Call for help.
--- NOTE | 2017-11-21 12:16 | DISCHARGE SUMMARY ---
Discharge Summary Admit Date: 11/18/17 Discharge Date: 11/21/17 Discharging Provider: Coleman Chandra MD Primary Care Provider: None Code Status: Attempt Resuscitation Condition at Discharge: Fair Discharge Disposition: 02 Transfer Acute Care Hosp Discharge Facility Name: [facility] (Accepting Provider: Dr Joseluis Royal) - DIAGNOSES Admission Diagnoses: 1. Hypoxia 2. Community-acquired pneumonia 3. Lung masses 4. COPD 5. Hypertension Discharge Diagnoses with Status of Each Condition: 1. Lung masses: Guarded 2. Hypoxia: Guarded 3. Community-acquired pneumonia: Improved 4. COPD: Guarded 5. Hypertension: Stable - HPI History of Present Illness: Patient is a 72-year-old female with past medical history of COPD and tobacco abuse who presented to the emergency department with a chief complaint of shortness of breath. The patient states that she does not see doctors and has never been diagnosed with any chronic condition. She moved to [facility] from [place] about 3 years ago and has never established a primary care physician. The patient also states that she smoked for over 50 years and quit about 3 years ago. She states that she started smoking at the age of 11. She states that over the last few weeks to about a month she has had increasing shortness of breath. She states it became significantly worse over the last 3 days. She states that she went to an urgent care a few days earlier and was given some prescriptions but states that she did not improve. She stated that she was having upper respiratory symptoms but mostly just was very short of breath. On presentation to the emergency department the patient was found to be hypoxic and tachycardic with heart rate in the 130s-140s. The patient underwent a chest x-ray as she had a leukocytosis of 11,000 and was found to have bilateral opacities which could be pneumonia or a mass. Given the patient' s tachycardia and the concern for mass the patient also underwent a CT angiogram of her lungs to rule out a pulmonary embolism. This was negative for a pulmonary embolism but did show multifocal moderate to large consolidative masslike opacification seen in the left upper lobe and bilateral lower lobe, large in the left upper lobe, could represent severe multifocal pneumonia versus lung malignancy. There was also finding of mediastinal and right hilar lymphadenopathy which could be reactive versus metastasis. The radiologist stated that he could not distinguish between this being a malignancy versus a pneumonia. The patient was placed on antibiotics for treatment of community- acquired pneumonia with ceftriaxone and azithromycin. The plan was to treat the patient's pneumonia for 3 days and then repeat a chest x-ray to determine whether this was pneumonia versus mass and whether the patient would need a bronchoscopy. - HOSPITAL COURSE Hospital Course: After patient received IV antibiotics with ceftriaxone and azithromycin for 3 days a chest x-ray was repeated. Chest x-ray continued to show masslike consolidations and the radiologist was spoken to. The radiologist stated that unless the patient was having severe symptoms of sepsis it was very unlikely that these findings were consistent with a pneumonia. He felt that he most likely looking back at the CT scan that the patient has malignancy. He recommended that the patient get bronchoscopy with biopsies as soon as possible. Call was made to [facility] and I spoke with Dr. Huggins badger distiller operator who accepted the patient in transfer. We do not have pulmonology available at [facility] and therefore cannot do bronchoscopy or biopsy. The patient was accepted by Dr. Sandhu the hospitalist at [facility]. The patient was transferred in stable condition and will undergo further evaluation once she is transferred. - ALLERGIES Allergies/Adverse Reactions: Allergies Allergy/AdvReac Type Severity Reaction Status Date / Time acetaminophen [From Percocet] Allergy Rash Verified 11/18/17 15:13 oxycodone [From Percocet] Allergy Rash Verified 11/18/17 15:13 - MEDICATIONS Home Medications: Ambulatory Orders Medication Instructions Recorded Confirmed Cholecalciferol (Vitamin D3) 4,000 units PO DAILY 11/18/17 11/18/17 [Vitamin D3] Glucosamine Sulfate Dipot Chlr 1,000 mg PO BID 11/18/17 11/18/17 [Glucosamine Sulfate] Multivitamin [Theragran] 1 tab PO DAILY 11/18/17 11/18/17 [place]-3/Dha/Epa/Fish Oil [Fish Oil 1 gm PO DAILY 11/18/17 11/18/17 1,000 mg Softgel] Zinc 50 mg PO DAILY 11/18/17 11/18/17 - PHYSICAL EXAM AT DISCHARGE General Appearance: positive: No acute distress, Alert Eyes Bilateral: positive: Normal inspection, PERRL, EOMI, No lid inflammation, Conjunctivae nml, No scleral icterus ENT: positive: ENT inspection nml, Pharynx nml, No signs of dehydration. negative: Purulent nasal drainage, Pharyngeal erythema, Oral lesions Neck: positive: Nml inspection, Thyroid nml, No JVD, Trachea midline. negative : Thyromegaly, Lymphadenopathy (R), Lymphadenopathy (L), Stiff neck, Carotid bruit, Tracheal deviation Respiratory: positive: Chest non-tender, No respiratory distress, Rales, Rhonchi (Bilateral bases, left upper lung) Cardiovascular: positive: Regular rate & rhythm, No murmur, No gallop Peripheral Pulses: positive: 2+ Abdomen: positive: Non-tender, No organomegaly, Nml bowel sounds, No distention. negative: Guarding, Rebound, Hepatomegaly Back: positive: Nml inspection. negative: CVA tenderness (R), CVA tenderness (L ) Skin: positive: Color nml, No rash, Warm. negative: Diaphoresis, Pallor, Skin rash Extremities: positive: Non-tender, Full ROM, Nml appearance, No pedal edema Neurologic/Psychiatric: positive: Oriented x3, CN's nml (2-12), Motor nml, Sensation nml, Mood/affect nml - LABS Result Diagrams: 11/21/17 06:01 11/21/17 06:01 Other Lab Results: Laboratory Results WBC 9.1 x10^3/uL (4.8-10.8) 11/21/17 06:01 RBC 4.30 10^6/uL (4.20-5.40) 11/21/17 06:01 Hgb 12.4 g/dL (12.0-16.0) 11/21/17 06:01 Hct 37.7 % (37.0-47.0) 11/21/17 06:01 MCV 87.8 fL (81.0-99.0) 11/21/17 06:01 MCH 28.8 pg (27.0-31.0) 11/21/17 06:01 MCHC 32.8 g/dL (32.0-36.0) 11/21/17 06:01 RDW 14.4 % (12.0-15.0) 11/21/17 06:01 Plt Count 282 10^3/uL (130-450) 11/21/17 06:01 MPV 7.3 fL (7.9-10.8) L 11/21/17 06:01 Neut # (Auto) 7.7 10^3/uL (1.5-6.6) H 11/18/17 15:35 Lymph # (Auto) 2.2 10^3/uL (1.5-3.5) 11/18/17 15:35 [place] # (Auto) 0.8 10^3/uL (0.0-1.0) 11/18/17 15:35 Eos # (Auto) 0.3 10^3/uL (0.0-0.7) 11/18/17 15:35 Baso # (Auto) 0.1 10^3/uL (0.0-0.1) 11/18/17 15:35 Absolute Nucleated RBC 0.00 x10^3/uL 11/18/17 15:35 Nucleated RBC % 0.0 /100WBC 11/18/17 15:35 PT 12.8 secs (9.9-12.6) H 11/18/17 15:35 INR 1.1 (0.8-1.2) 11/18/17 15:35 APTT 26.1 secs (24.9-33.3) 11/18/17 15:35 Sodium 140 mmol/L (135-145) 11/21/17 06:01 Potassium 4.3 mmol/L (3.5-5.0) 11/21/17 06:01 Chloride 103 mmol/L (101-111) 11/21/17 06:01 Carbon Dioxide 28 mmol/L (21-32) 11/21/17 06:01 Anion Gap 9.0 (6-13) 11/21/17 06:01 BUN 7 mg/dL (6-20) 11/21/17 06:01 Creatinine 0.5 mg/dL (0.4-1.0) 11/21/17 06:01 Estimated GFR (MDRD) 121 (>89) 11/21/17 06:01 Glucose 112 mg/dL (70-100) H 11/21/17 06:01 Lactic Acid 1.5 mmol/L (0.5-2.2) 11/18/17 15:35 Calcium 9.3 mg/dL (8.5-10.3) 11/21/17 06:01 Total Bilirubin 0.8 mg/dL (0.2-1.0) 11/18/17 15:35 AST 27 IU/L (10-42) 11/18/17 15:35 ALT 29 IU/L (10-60) 11/18/17 15:35 Alkaline Phosphatase 89 IU/L (42-121) 11/18/17 15:35 Troponin I < 0.04 ng/mL (<0.49) 11/18/17 15:35 B-Natriuretic Peptide 52 pg/mL (5-100) 11/18/17 15:35 Total Protein 8.4 g/dL (6.7-8.2) H 11/18/17 15:35 Albumin 3.6 g/dL (3.2-5.5) 11/18/17 15:35 Globulin 4.8 g/dL (2.1-4.2) H 11/18/17 15:35 Albumin/Globulin Ratio 0.8 (1.0-2.2) L 11/18/17 15:35 Lipase 37 U/L (22-51) 11/18/17 15:35 - DIAGNOSTIC IMAGING Diagnostic Imaging Results: Final report reviewed Diagnostic Imaging Results Comments: EXAM: CT ANGIOGRAM CHEST EXAM DATE: 11/18/2017 05:27 PM. CLINICAL HISTORY: Shortness of air, hypoxia, tachycardia, tachypneic. COMPARISON: Chest 1 view 11/18/2017. TECHNIQUE: Routine helical imaging was performed through the chest in the pulmonary arterial phase. IV Contrast: 80 mL, Isovue 300. Reconstructions: Coronal 3-D MIP reconstructions.Sagittal and coronal. In accordance with CT protocol optimization, one or more of the following dose reduction techniques were utilized for this exam: automated exposure control, adjustment of mA and/or KV based on patient size, or use of iterative reconstructive technique. FINDINGS: Mediastinum: No thoracic aortic aneurysm or dissection. Prominent heart size. Coronary artery calcification. Right hilar lymphadenopathy 1.8 cm. Another right low hilar lymphadenopathy 1.4 cm. Low subcarinal borderline lymphadenopathy 1 cm. Pulmonary arteries: Motion artifact limited, especially at the right lower lobe and right lower lobe segmental pulmonary emboli are not excluded. Otherwise, no definite pulmonary emboli seen. Lungs: Large consolidated masslike opacity seen in the left upper lobe extending to the left hilum surrounding left upper lobe vessels and bronchi. Moderate consolidative masslike opacification located more centrally in the left lower lobe extending to the left hilum with air bronchograms. Moderate right lower lobe consolidative masslike opacification centrally in the right lower lobe. Very small left pleural effusion. No pneumothorax. Motion artifact limited. Upper abdomen: No acute findings. No acute bone findings. IMPRESSION: 1. Multifocal moderate to large consolidative masslike opacifications seen in the left upper lobe and bilateral lower lobes, large in the left upper lobe, could represent severe multifocal pneumonia versus lung malignancy. Follow-up is recommended. Mediastinal and right hilar lymphadenopathy, could be reactive versus metastasis. 2. Very small left pleural effusion. 3. Pulmonary arteries: Motion artifact limited, especially at the right lower lobe and right lower lobe segmental pulmonary emboli are not excluded. Otherwise, definite pulmonary emboli seen. RADIA ADDENDUM: 11/18/17 18:22 3. Pulmonary arteries: Motion artifact limited, especially at the right lower lobe and right lower lobe segmental pulmonary emboli are not excluded. Otherwise, no definite pulmonary emboli seen. EXAM: CHEST RADIOGRAPHY EXAM DATE: 11/18/2017 03:32 PM. CLINICAL HISTORY: Chest pain. Shortness of breath. COMPARISON: None. TECHNIQUE: 1 view. FINDINGS: Lungs/Pleura: Focal opacity in the right perihilar region is suspicious for a mass measuring just over 4 cm. Focal consolidation is present medially in the left upper lung zone. Left basilar atelectasis or infiltrate and elevation of the left hemidiaphragm. Mediastinum: Within exam limitations, the cardiomediastinal contour is normal. Other: None. IMPRESSION: 1. Findings suspicious for a right perihilar mass. 2. Focal consolidation in the left upper lung zone medially and left basilar airspace disease. Underlying mass is not excluded. 3. Further evaluation of bilateral lung abnormalities is recommended with CT chest. Chest x-ray 11/21/2017 Impression: Pneumonia of this radiographic extent would typically be expected to clinically declare itself. While pneumonia is not radiographically excluded, imaging suggests underlying masslike features. In the absence of a significant white blood cell count or fever, recommend tissue diagnosis. - FOLLOW UP Follow Up: Patient is being transferred to [facility] for higher level of care. The patient appears to have lung masses that require tissue biopsy for diagnostic purposes. The patient will require a badger distiller operator who has been spoken to over the phone and would like patient to be transferred to [facility]. The patient was accepted by Dr. Sandhu and Dr. Huggins at [facility] for transfer. The patient continues to require 2 L of oxygen and is being transferred via BLS. - TIME SPENT Time Spent in Discharge (Minutes): 45
[2017-11-21 12:58] VITALS: BP 123/67
== END 2017-11-21 14:55 | disposition short-term general hospital (02) | DRG 195 ==
LOC: ED 14:54 → MS2 18:28
PROVIDERS: ADMIT Hospitalist; ATTEND Internal Medicine
DX: J18.9 Pneumonia, unspecified organism (principal); R91.8 Other nonspecific abnormal finding of lung field; J44.9 Chronic obstructive pulmonary disease, unspecified; I10 Essential (primary) hypertension
CPT/HCPCS: 36415; 71045; 71275; 80048; 80053; 83605; 83690; 83880; 84484; 85025; 85027; 85610; 85730; 87040; 93005; 94640; 96361; 96365; 96367; 99284

== ENCOUNTER 2017-12-11 11:25 | Outpatient (CLI) | payer SELFPAY ==
[2017-12-11] MEDS ORDERED: IOPAMIDOL-300 100 ML VIAL ONE (11:28)
[2017-12-11] MEDS ORDERED: IOPAMIDOL-300 50 ML VIAL ONE (11:28)
[2017-12-11] MEDS ORDERED: IOPAMIDOL-300 50 ML VIAL PO ONE (13:12)
[2017-12-11] MEDS ORDERED: IOPAMIDOL-300 100 ML VIAL IVP ONE (13:12)
--- NOTE | 2017-12-11 14:08 | CT Report ---
Reason: LUNG CANCER Procedure Date: 12/11/2017 Accession Number: [id number] / [id number] Procedure: CT - Head W/ CPT Code: FULL RESULT: EXAM: CT HEAD EXAM DATE: 12/11/2017 01:07 PM. CLINICAL HISTORY: Lung cancer. COMPARISON: None. TECHNIQUE: Multiaxial CT images were obtained from the foramen magnum to the vertex. Reformats: Sagittal and coronal. IV contrast: 100 mL Isovue 300. In accordance with CT protocol optimization, one or more of the following dose reduction techniques were utilized for this exam: automated exposure control, adjustment of mA and/or KV based on patient size, or use of iterative reconstructive technique. FINDINGS: Parenchyma: No intraparenchymal hemorrhage. No evidence of mass, midline shift, or CT findings of infarction. [place]-white differentiation is distinct. No abnormal enhancement. Extraaxial Spaces: Normal for age. No subdural or epidural collections identified. Ventricles: Normal in size and position. Sinuses and Orbits: Imaged paranasal sinuses, orbits, and mastoids show no significant abnormality. Bones: No evidence of fracture or calvarial defect. Other: None. IMPRESSION: No mass-like enhancement or overt mass effect. Please note that contrast-enhanced MRI represents a better modality for the evaluation of metastatic disease. The vast majority of current surgical implants are at least MRI conditional and would permit MRI of the head. RADIA
--- NOTE | 2017-12-11 14:08 | CT Report ---
Reason: LUNG CANCER Procedure Date: 12/11/2017 Accession Number: [id number] / [id number] Procedure: CT - Abdomen/Pelvis W/ CPT Code: FULL RESULT: EXAM: CT ABDOMEN AND PELVIS EXAM DATE: 12/11/2017 01:07 PM. CLINICAL HISTORY: Lung cancer. COMPARISONS: CHEST ANGIO 11/18/2017. TECHNIQUE: Routine helical CT imaging was performed through the abdomen and pelvis. IV contrast: ISOVUE 300 100 mL. Enteric contrast: Yes. Reconstructions: Coronal and sagittal. In accordance with CT protocol optimization, one or more of the following dose reduction techniques were utilized for this exam: automated exposure control, adjustment of mA and/or KV based on patient size, or use of iterative reconstructive technique. FINDINGS: Lung Bases: Redemonstration of right lung mass with hilar lymphadenopathy and mediastinal involvement as well as left basilar consolidation. Liver: Normal. No masses. Gallbladder/Bile Ducts: Unremarkable. Spleen: Normal. Pancreas: Normal. Adrenal Glands: Nodularity of the left adrenal gland without a discretely measurable mass, metastasis is not excluded. Right adrenal gland is normal. Kidneys: No masses or hydronephrosis. Peritoneal Cavity/Bowel: Normal. No free fluid, free air or adenopathy. No masses or acute inflammatory process. Pelvic Organs: Normal. The bladder and visualized pelvic organs are within normal limits. Vasculature: Moderate aortic atherosclerosis. No aneurysms or other significant abnormality. Bones: No aggressive osseous lesions. Other: None. IMPRESSION: Nodularity of the left adrenal gland, early metastasis is not excluded. Consider PET/CT versus short-term imaging followup. No other evidence of metastatic disease to the abdomen or pelvis. RADIA
== END 2017-12-11 11:26 | disposition home or self-care (01) ==
LOC: DI 11:25
PROVIDERS: ATTEND Internal Medicine
DX: C34.90 Malignant neoplasm of unspecified part of unspecified bronchus or lung (principal)
CPT/HCPCS: 70460; 74177; Q9967

== ENCOUNTER 2018-01-02 07:01 | Day surgery (SDC) | payer MEDICARE, MEDICAID ==
[2018-01-02] MEDS ORDERED: LACTATED RINGERS 1,000 ML IV ONE (07:15)
[2018-01-02] MEDS ORDERED: BUPIVACAINE 0.5% PF 30 ML VIAL ONE (07:18)
[2018-01-02] MEDS ORDERED: ceFAZolin 2 GM/50 ML 2 GM/50 ML BAG IV ONE (07:19)
--- NOTE | 2018-01-02 07:50 | ANESTHESIA ---
Pre-Anesthesia VS, & Labs - Diagnosis Metastatic lung cancer - Procedure Placement of infusaport Vital Signs: Temp Pulse Resp BP Pulse Ox 36.2 C L 84 18 164/84 H 94 01/02/18 07:16 01/02/18 07:16 01/02/18 07:16 01/02/18 07:16 01/02/18 07:16 Height 5 ft 4 in Weight (kg) 92.8 kg Body Mass Index 32.9 - NPO >8 hours Last Fluid Intake: 0300 sip of water - Is Patient ?: No - Lab Results Lab results reviewed: Yes Home Medications and Allergies Home Medications: Ambulatory Orders Medication Instructions Recorded Confirmed Cholecalciferol (Vitamin D3) 4,000 units PO DAILY 11/18/17 01/02/18 [Vitamin D3] Glucosamine Sulfate Dipot Chlr 1,000 mg PO BID 11/18/17 01/02/18 [Glucosamine Sulfate] Multivitamin [Theragran] 1 tab PO DAILY 11/18/17 01/02/18 [place]-3/Dha/Epa/Fish Oil [Fish Oil 1 gm PO DAILY 11/18/17 01/02/18 1,000 mg Softgel] Zinc 50 mg PO DAILY 11/18/17 01/02/18 Hydrochlorothiazide 12.5 mg ORAL DAILY 12/05/17 01/02/18 Lisinopril 20 mg ORAL DAILY 12/05/17 01/02/18 Dexamethasone 8 mg PO DAILY 3 Days #30 tablet 12/27/17 01/02/18 Lidocaine/Prilocain 2.5% Cream 30 gm TOP PRN PRN #1 tube 12/27/17 01/02/18 [Emla 2.5% Cream] Ondansetron HCl 4 mg PO Q4H PRN #30 solution 12/27/17 01/02/18 Prochlorperazine Maleate 10 mg PO Q6H PRN #30 tablet 12/27/17 01/02/18 [Compazine] Cholecalciferol (Vitamin D3) [Vitamin D3] 4,000 units PO DAILY 11/18/17 Glucosamine Sulfate Dipot Chlr [Glucosamine Sulfate] 1,000 mg PO BID 11/18/17 Multivitamin [Theragran] 1 tab PO DAILY 11/18/17 [place]-3/Dha/Epa/Fish Oil [Fish Oil 1,000 mg Softgel] 1 gm PO DAILY 11/18/17 Zinc 50 mg PO DAILY 11/18/17 Hydrochlorothiazide 12.5 mg ORAL DAILY 12/05/17 Lisinopril 20 mg ORAL DAILY 12/05/17 Allergies/Adverse Reactions: Allergies Allergy/AdvReac Type Severity Reaction Status Date / Time oxycodone [From Percocet] Allergy Rash Verified 11/18/17 15:13 Anes History & Medical History - Anesthetic History Anesthesia Complications: reports: No previous complications Family history of Anesthesia Complications: Denies Family history of Malignant Hyperthermia: Denies - Medical History Cardiovascular: reports: Hypertension Pulmonary: reports: Pneumonia (episode 12/02), Other (lung cancer) Gastrointestinal: reports: GERD (controlled with medication) Urinary: reports: None Neuro: reports: None Musculoskeletal: reports: Osteoarthritis Endocrine/Autoimmune: reports: None Blood Disorders: reports: None Skin: reports: None Smoking Status: Former smoker (quit 3 years ago. 50 pack year) Psychosocial: reports: No issues indicated - Surgical History General: Appendectomy Eyes Ears Nose Throat (EENT): Tonsil/Adenoidectomy Gynecologic: Hysterectomy Exam General: Alert, Oriented x3, Cooperative, No acute distress Dental: Poor dentition Mouth Openin Fingerbreadth Mallampati classification: II Thyromental Distance: 4-6 cm Respiratory: Absent breath sounds (On Left side), Decreased breath sounds (on right side), Other (short of breath) Cardiovascular: Regular rate, Normal S1, Normal S2, No murmurs Neurological: Normal speech Mental/Cognitive Status: Alert/Oriented X3, Normal for patient Cognitive Status: Within normal limits Plan Anesthesia Type: MAC Consent for Procedure(s) Verified and Reviewed: Yes Code Status: Attempt Resuscitation ASA classification: 4-Incapacitating disease Is this case an emergency?: No
[2018-01-02] MEDS ORDERED: BUPIVACAINE 0.5% PF 30 ML VIAL SUBQ ONE ×2 (08:37)
[2018-01-02] MEDS ORDERED: MIDAZOLAM 2 MG/2 ML VIAL IVP ONE (09:00)
[2018-01-02] MEDS ORDERED: PROPOFOL 200 MG/20 ML VIAL IVP ONE (09:00)
[2018-01-02] MEDS ORDERED: GLYCOPYRROLATE 1 MG/5 ML VIAL IVP ONE (09:00)
[2018-01-02] MEDS ORDERED: KETAMINE 500 MG/10 ML VIAL IVP ONE (09:00)
--- NOTE | 2018-01-02 09:31 | XRAY Report ---
Reason: OR Procedure Date: 01/02/2018 Accession Number: [id number] / [id number] Procedure: XR - Chest 1 View X-Ray CPT Code: 55568 FULL RESULT: EXAM: CHEST RADIOGRAPHY EXAM DATE: 01/02/2018 09:19 AM. CLINICAL HISTORY: OR. COMPARISON: Chest 1 view 11/21/2017 8:06 AM. TECHNIQUE: 2 view. FINDINGS: A total of 2 portable AP images at different time points are submitted. Interval placement of a left subclavian approach central venous port with the tip of the catheter. Initially the tip of the central venous catheter is seen projecting towards what is presumed to be the azygous vein. On the second image obtained at a later time point, the distal tip is at the superior cavoatrial junction which represents appropriate placement. The chest radiograph overall appears similar to 11/21/2017 including a lung mass in the mid right lung and opacification of the left hemithorax. Pulmonary interstitial markings are also increased. There is cardiomegaly. IMPRESSION: Left subclavian approach chest port placement with final positioning of the tip of the central venous catheter appropriately at the superior cavoatrial junction. RADIA
--- NOTE | 2018-01-02 09:36 | OPERATIVE REPORT ---
Operative Report - General Procedure Date: 01/02/18 Planned Procedure: Port-A-Cath placement Pre-Op Diagnosis: Metastatic lung cancer Procedure Performed: LEFT subclavian Port-A-Cath placement Post Op Diagnosis: Same - Procedure Note Primary Surgeon: Sina Valenzuela MD Anesthesia Provider: Mark Pollock CRNA Anesthesia Technique: Local (17 mL 1/2% marcaine), MAC IV Fluids (mL): 700 Estimated Blood Loss (mL): 5 Complications: None. - Other Other Information/Narrative: OPERATIVE DESCRIPTION/REPORT: After verbal and written informed consent was obtained detailing the risks of infection, bleeding requiring transfusion with its risks, nerve injury, and , and after I met with the patient confirming the surgery and the site of the surgery, the patient was brought to the operative suite and placed supine on the operating table. Great care was taken to avoid pressure points to prevent pressure necrosis or nerve injury. Monitoring devices were applied along with TEDs and pneumatic compressive stockings (to prevent DVT). The patient received preoperative antibiotics for surgical prophylaxis. [anesthesiologist] sedated and anesthetized the patient for the entire procedure. The patient was prepped and draped in the usual sterile manner. A "time in" then confirmed that the patient was identified with 3 identifiers (name, date and medical record number), the history and physical was in the chart, the signed consent confirming the procedure was in the chart, the patient was in the correct position, the aforementioned prophylactic measures were in place or given, we had the correct personnel and equipment to complete the procedure and that anesthesia, surgery and nursing were given an opportunity to express any concerns. With the agreement of everyone in the room, we proceeded with the operation. After the subclavian region was anesthetized using % marcaine and the patient placed in Trendelenberg position, an [employer] Smartport kit was opened. The finder needle was inserted into the subclavian vein taking great care to place it just under the clavicle in order to minimize the risk of pneumothorax. When good venous blood return was obtained, the wire was placed through the needle and into the vein without difficulty. Cardiac irritability confirmed that the catheter was correctly going down towards the heart. Below and lateral to the needle insertion site, the area was anesthetized again using % marcaine and a transverse incision was made just large enough to accommodate the port. This incision was taken down to the fascia using sharp dissection and the area for the port was created using blunt downward dissection. Meticulous hemostasis was obtained using Bovie electrocautery. A knife was inserted along the wire to widen the insertion site and this was further dilated using a Svetlana. The port was flushed with heparinized saline and placed in the pouch and the catheter was then passed to the needle opening using the passer. The catheter was then m easured against the patients anterior chest and cut so that the tip would lie 2 cm below the manubrial-sternal junction. The port was secured to the fascia using a 3-0 Prolene on the side of the opening of the port. The catheter was then wiped and wrapped with a heparinized soaked 4x4. The dilator and sheath were then carefully inserted over the wire and the dilator and wire withdrawn. The catheter was then inserted into the sheath and the sheath was broken away from the catheter leaving the catheter in place in the vein. An X-ray confirmed placement of the catheter tip in the right atrium/supracardiac vena cava without pneumothorax. Some manipulation of the catheter was necessary to get the catheter in the right position. Using a Hueber needle the port was accessed and good blood return as well as easy flush was noted. The subcutaneous tissue was approximated using 3-0 Vicryl and the skin incisions were approximated with 4-0 Monocryl in a subcuticular fashion. The skin prep was washed off and prepped with benzoin. Steristrips were applied. At this point a time out was performed that confirmed that all the counts were correct, the procedure that was performed, the blood loss, the IV fluids administered, and the patients condition. A dressing was placed on the wound. Having tolerated the procedure well, the patient was taken to short stay in good and stable condition. The patient was instructed that the Portacath could be used immediately.
[2018-01-02 10:12] VITALS: BP 181/93
== END 2018-01-02 07:02 | disposition home or self-care (01) ==
LOC: SDS 07:01
PROVIDERS: ATTEND Surgery
PROC: 02HV33Z Insertion of Infusion Device into Superior Vena Cava, Percutaneous Approach (ICD-10-PCS; 2018-01-02)
PROC: 0JH63WZ Insertion of Totally Implantable Vascular Access Device into Chest Subcutaneous Tissue and Fascia, Percutaneous Approach (ICD-10-PCS; principal; 2018-01-02 08:15)
DX: C34.90 Malignant neoplasm of unspecified part of unspecified bronchus or lung (principal); I10 Essential (primary) hypertension; K21.9 Gastro-esophageal reflux disease without esophagitis; Z87.891 Personal history of nicotine dependence
CPT/HCPCS: 36561; 71045; C1788; J0690; J7120

== ENCOUNTER 2018-04-18 10:08 | Emergency (ER) | payer MEDICARE, MEDICAID ==
[2018-04-18] MEDS ORDERED: SODIUM CHLORIDE 0.9% 1,000 ML IV ONE (10:20)
--- NOTE | 2018-04-18 10:30 | ED Physician Documentation ---
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 and then transferred to [facility] for bronchoscopy she is now followed at [facility] and getting chemo she presented today at [facility] and was found to be tachycardic to sent to ER upon arrival in ER pt has no specific complaints she denies fever denies CP deneis palp baseline SOA no new cuhg no abd pain had diarrhea 5 days ago but not new no bloody black BM no recent travel inpt stay or leg swelling has 2 cups of coffee this AM but that is normal for her no new meds Review of Systems Constitutional: denies: Fever, Chills Cardiac: denies: Chest pain / pressure, Palpitations Respiratory: denies: Dyspnea (no change from baseline), Cough GI: denies: Abdominal Pain, Nausea, Vomiting, Bloody / black stool Musculoskeletal: denies: Extremity swelling Endocrine: denies: Easy bruising / bleeding Immunocompromised: denies: Immunocompromised PD PAST MEDICAL HISTORY - Past Medical History Cardiovascular: Hypertension Respiratory: Pneumonia, Other Neuro: None Endocrine/Autoimmune: None GI: GERD : None HEENT: None Psych: None Musculoskeletal: Osteoarthritis Derm: None - Past Surgical History Past Surgical History: No General: Appendectomy /NON DESTRUCTIVE EVALUATION SPECIALIST: Hysterectomy HEENT: Tonsil/Adenoidectomy - Present Medications Home Medications: Ambulatory Orders Medication Instructions Recorded Confirmed Cholecalciferol (Vitamin D3) 4,000 units PO DAILY 11/18/17 04/18/18 [Vitamin D3] Glucosamine Sulfate Dipot Chlr 1,000 mg PO BID 11/18/17 04/18/18 [Glucosamine Sulfate] Multivitamin [Theragran] 1 tab PO DAILY 11/18/17 04/18/18 Gustavus-3/Dha/Epa/Fish Oil [Fish Oil 1 gm PO DAILY 11/18/17 04/18/18 1,000 mg Softgel] Zinc 50 mg PO DAILY 11/18/17 04/18/18 Hydrochlorothiazide 12.5 mg ORAL DAILY 12/05/17 04/18/18 Lidocaine/Prilocain 2.5% Cream 30 gm TOP PRN PRN #1 tube 12/27/17 04/18/18 [Emla 2.5% Cream] Ondansetron HCl 4 mg PO Q4H PRN #30 solution 12/27/17 04/18/18 Prochlorperazine Maleate 10 mg PO Q6H PRN #30 tablet 12/27/17 04/18/18 [Compazine] HYDROcod/ACETAM 5/325 [Lavelle 5/325] 1 - 2 ea PO Q6H PRN 01/09/18 04/18/18 Lisinopril 0.5 tab ORAL PRN PRN 03/06/18 04/18/18 - Allergies Allergies/Adverse Reactions: Allergies Allergy/AdvReac Type Severity Reaction Status Date / Time oxycodone [From Percocet] AdvReac Rash Verified 04/18/18 10:21 - Social History Does the pt smoke?: No Smoking Status: Former smoker (quit 3 years ago. 50 pack year) PD ED PE NORMAL - Vitals Vital signs reviewed: Yes - General General: Alert and oriented X 3 - Neck Neck: Supple, no meningeal sign - Cardiac Cardiac: No: RRR (tachy) - Respiratory Respiratory: Clear bilaterally - Abdomen Abdomen: Soft, Non tender - Derm Derm: Other (post s erytehma infection) - Extremities Extremities: No edema, No calf tenderness / cord - Neuro Neuro: Alert and oriented X 3 Results - Vitals Vitals: Vital Signs - 24 hr 04/18/18 04/18/18 04/18/18 10:12 10:31 10:43 Temperature 37.3 C Heart Rate 156 H 150 H 95 Respiratory 22 17 27 H Rate Blood Pressure 134/108 H 104/75 139/75 H O2 Saturation 99 100 97 04/18/18 12:19 Temperature 37.5 C Heart Rate 81 Respiratory 20 Rate Blood Pressure 143/77 H O2 Saturation 97 Oxygen O2 Source Nasal cannula Oxygen Flow Rate 2 - EKG (time done) 1014 Rate: Rate (enter#) (153) Rhythm: Other (may be SVT but possible see P waves in I and II) Ischemia: ST elevation c/w ischemia (inf), Q waves (inf) Compare to prior EKG: Unchanged from prior EKG (ST changes inferior are similar to EKG from 11/18/17), Other (EMR has EKGs scanned in on 03/05/18, 04/13/18 and 05/19/18 but when accessed they are all actually the same EKG dated 02/20) 1043 Rate: Rate (enter#) (1043) Rhythm: NSR Etters: Normal Intervals: Normal IL Ischemia: Q waves (inf) - Labs Labs: Laboratory Tests 04/18/18 04/18/18 04/18/18 10:29 10:29 10:29 WBC 5.5 RBC 3.10 L Hgb 10.6 L Hct 30.3 L MCV 97.7 MCH 34.1 H MCHC 34.9 RDW 17.6 H Plt Count 190 MPV 6.9 L Neut # (Auto) 3.4 Lymph # (Auto) 1.4 L Iroquois # (Auto) 0.6 Eos # (Auto) 0.0 Baso # (Auto) 0.0 Absolute Nucleated RBC 0.00 Nucleated RBC % 0.1 Sodium 134 L Potassium 3.5 Chloride 97 L Carbon Dioxide 29 Anion Gap 8.0 BUN 19 Creatinine 0.6 Estimated GFR (MDRD) 98 Glucose 135 H Lactic Acid Calcium 8.9 Troponin I < 0.04 04/18/18 10:29 WBC RBC Hgb Hct MCV MCH MCHC RDW Plt Count MPV Neut # (Auto) Lymph # (Auto) Iroquois # (Auto) Eos # (Auto) Baso # (Auto) Absolute Nucleated RBC Nucleated RBC % Sodium Potassium Chloride Carbon Dioxide Anion Gap BUN Creatinine Estimated GFR (MDRD) Glucose Lactic Acid 1.4 Calcium Troponin I - Rads (name of study) CTPA Radiology: See rad report (no PE everything else stable) Procedures - Cardioversion 1 Time of attempt: 10:35 Indication: Tachyarrhythmia. No: Clinically unstable Risks, benefits, alternatives explained to: Pt Prep: IV, satellite project site monitor Meds: Adenocard Post cardioversion rhythm: NSR (no change with vagals, back to NSR after 6 of adenosine s any complication) PD MEDICAL DECISION MAKING - ED course ED course: pt was full cpde when admitted in November no POLST in EMR or MAC chart Departure - Departure Disposition: 01 Home, Self Care Clinical Impression: SVT (supraventricular tachycardia) Condition: Good Instructions: ED Tachycardia Pat PSVT Follow-Up: Jarret Huggins MD [Primary Care Provider] - Comments: Your labs and CT scan were either normal or unchanged from before. You do not have a blood clot in your lungs. You were in an abnormal heart rhythm called supraventricular tachycardia but that was fixed with medication in the ER and you have remained in a normal stable rhythm since So it is OK for you to go home. This might re-occur - you will need to return to the ER if it happens again Please avoid excess caffeine and other stimulants. And ask your PMD for a referral to a sales and marketing intern
[2018-04-18] MEDS ORDERED: ADENOSINE 6 MG/2 ML VIAL IVP STA (10:33)
[2018-04-18 10:39] LABS: BASOPHILS % (AUTO) 0.6 %; EOSINOPHILS % (AUTO) 0.4 %; HGB - HEMOGLOBIN 10.6 g/dL (12.0-16.0); LYMPHOCYTES # (AUTO) 1.4 10^3/uL (1.5-3.5); LYMPHOCYTES % (AUTO) 25.9 %; MEAN CORPUSCULAR HEMOGLOBIN 34.1 pg (27.0-31.0); MEAN CORPUSCULAR HGB CONC 34.9 g/dL (32.0-36.0); MEAN CORPUSCULAR VOLUME 97.7 fL (81.0-99.0); MEAN PLATELET VOLUME 6.9 fL (7.9-10.8); MONOCYTES # (AUTO) 0.6 10^3/uL (0.0-1.0); MONOCYTES % (AUTO) 10.2 %; NEUTROPHILS # (AUTO) 3.4 10^3/uL (1.5-6.6); NEUTROPHILS % (AUTO) 62.9 %; PLT - PLATELET COUNT 190 10^3/uL (130-450); RED CELL DISTRIBUTION WIDTH 17.6 % (12.0-15.0); WHITE BLOOD COUNT 5.5 x10^3/uL (4.8-10.8)
[2018-04-18 10:50] LABS: CALCIUM 8.9 mg/dL (8.5-10.3); CREATININE 0.6 mg/dL (0.4-1.0)
[2018-04-18] MEDS ORDERED: IOVERSOL 320 100 ML VIAL IVP ONE ×2 (11:59→14:04)
--- NOTE | 2018-04-18 14:29 | CT Report ---
Reason: cancer tachycardia hypoxia Procedure Date: 04/18/2018 Accession Number: [id number] / [id number] Procedure: CT - Chest Angio (PE) CPT Code: FULL RESULT: EXAM: CT ANGIOGRAM CHEST EXAM DATE: 04/18/2018 02:13 PM. CLINICAL HISTORY: Cancer tachycardia hypoxia. COMPARISON: CHEST W/ 03/23/2018 10:09 AM. TECHNIQUE: Routine helical imaging was performed through the chest in the pulmonary arterial phase. IV Contrast: OPTIRAY 320 80mL. Reconstructions: Coronal 3-D MIP reconstructions.Sagittal and coronal. In accordance with CT protocol optimization, one or more of the following dose reduction techniques were utilized for this exam: automated exposure control, adjustment of mA and/or KV based on patient size, or use of iterative reconstructive technique. FINDINGS: Pulmonary Arteries: Diagnostic quality: Adequate through the segmental arteries. No evidence for acute or chronic pulmonary emboli. RV/LV is within normal limits. There is no interventricular septal bowing. There is no reflux of contrast material in the IVC. Lungs/Pleura: Left lung base consolidation as well as lesser consolidation of the right lung base is similar to before. Left upper lobe mass abutting the aortic arch and mediastinum is similar to 03/23/2018 and measures 4.8 x 4.2 cm on image 42 series 5 (previously 5.1 x 4.4 cm when measured in the same fashion). Mediastinum: Prominent mediastinal lymph nodes which no longer meet size criteria are again seen, hilar lymphadenopathy is also essentially stable compared to March. There are coronary calcifications. Thoracic Aorta: Partially calcified. Upper Abdomen: Nodular left adrenal gland is unchanged in appearance. Other: None. IMPRESSION: No pulmonary embolism. Stable thoracic disease. RADIA
[2018-04-18 15:14] VITALS: BP 160/96
== END 2018-04-18 15:20 | disposition home or self-care (01) ==
LOC: ED 10:08
DX: I47.1 Supraventricular tachycardia (principal); C34.90 Malignant neoplasm of unspecified part of unspecified bronchus or lung; I10 Essential (primary) hypertension; J44.9 Chronic obstructive pulmonary disease, unspecified; Z99.81 Dependence on supplemental oxygen; Z79.899 Other long term (current) drug therapy; Z87.891 Personal history of nicotine dependence
CPT/HCPCS: 36415; 71275; 80048; 83605; 84484; 85025; 87040; 93005; 96361; 96374; 99284

== ENCOUNTER 2018-06-01 13:51 | Outpatient (CLI) | payer MEDICARE, MEDICAID | END 2018-06-01 13:52 | disposition home or self-care (01) | LOC: DI 13:51 | PROVIDERS: ATTEND Internal Medicine Cardiovascular Disease | DX: R00.2 Palpitations (principal) | CPT/HCPCS: 93306 ==

== ENCOUNTER 2019-04-22 09:08 | Outpatient (CLI) | payer MEDICARE, MEDICAID ==
[2019-04-22] MEDS ORDERED: IOVERSOL 320 100 ML VIAL IVP ONE ×2 (09:16→13:06)
--- NOTE | 2019-04-22 15:01 | CT Report ---
Reason: LUNG CA Procedure Date: 04/22/2019 Accession Number: [id number] / [id number] Procedure: CT - CHEST W CPT Code: Final Report FULL RESULT: EXAM: CT CHEST EXAM DATE: 04/22/2019 09:44 AM. CLINICAL HISTORY: Lung cancer. COMPARISONS: CHEST W/ 11/26/2018 11:20 AM. CHEST W/ 07/24/2018 9:47 AM. CHEST W05/01/2018 3:04 PM. ABDOMEN/PELVIS W05/01/2018 3:04 PM. TECHNIQUE: Routine helical CT imaging was performed through the chest. IV contrast: 80 cc of Optiray 320. Reconstructions: Coronal and sagittal. In accordance with CT protocol optimization, one or more of the following dose reduction techniques were utilized for this exam: automated exposure control, adjustment of mA and/or KV based on patient size, or use of iterative reconstructive technique. FINDINGS: Lungs/Pleura: Confluent lingular left lower lobe and superior right lower lobe opacities are again seen. Overall appearance is unchanged with associated air bronchograms. No parenchymal cavities are identified. No pleural effusions. No endobronchial obstruction. Left upper lobe/ paramediastinal soft tissue density again seen, measuring by my measurement in overall maximal size approximately 4 x 2 cm (image 37, series 3) x 3 cm (image 67, series 7). Overall size has decreased, previously measured in similar location 5.5 x 2.9 x 3.3 cm. Elevated left hemidiaphragm again seen. No new nodules or consolidation. No pneumothorax. Mediastinum: Heart is enlarged. Coronary artery calcified plaque. Small pericardial effusion. Thoracic aortic calcified plaque. No aneurysm. Small hiatal hernia again seen. Mild soft tissue thickening of the left hilum is unchanged. Soft tissue thickening extending along the cephalad aspect of the aortic arch is again seen although slightly less prominent. No new enlarged mediastinal or hilar lymph nodes are identified. No inferior cervical or axillary adenopathy is evident. Bones: Degenerative changes of the thoracic spine. No osseous lesions. No acute osseous abnormalities. Visualized Abdomen: Included portions of the liver, gallbladder, spleen and pancreas are unremarkable. Adrenal gland nodularity and thickening is again seen and unchanged. Upper pole left renal low-attenuation lesion is again evident measuring approximately 10 mm. Abdominal aorta calcified plaque. Included portions of the stomach and upper abdominal bowel are unremarkable. Other: Left subclavian portacatheter is seen with the tip in the lower SVC. IMPRESSION: 1. Decrease in size of left superior lateral mediastinal/medial left upper lobe paramediastinal soft tissue mass. 2. Improved soft tissue thickening along the aortic arch. Minimal left hilar soft tissue thickening without significant change. 3. No new mediastinal, hilar, inferior cervical or axillary adenopathy. 4. Lingular, left lower lobe and right lower lobe confluent opacities likely scar/atelectasis without significant change. 5. Bilateral adrenal gland thickening and nodularity without significant change. RADIA
== END 2019-04-22 09:09 | disposition home or self-care (01) ==
LOC: DI 09:08
PROVIDERS: ATTEND Physician Assistant
DX: C34.92 Malignant neoplasm of unspecified part of left bronchus or lung (principal); E27.9 Disorder of adrenal gland, unspecified
CPT/HCPCS: 71260; Q9967

== ENCOUNTER 2019-07-02 08:00 | Outpatient (CLI) | payer MEDICARE, MEDICAID ==
[2019-07-02 10:19] LABS: CHOL/HDL RATIO 4.6 (<4.4); CHOLESTEROL 195 mg/dL; HDL CHOLESTEROL 42 mg/dL; LDL CHOLESTEROL,CALCULATED 135 mg/dL; LDL/HDL RATIO 3.2 (<4.4); VLDL CHOLESTEROL 18 mg/dL
== END 2019-07-02 23:59 | disposition home or self-care (01) ==
LOC: LAB.R 08:00
PROVIDERS: ATTEND Physician Assistant
DX: Z79.899 Other long term (current) drug therapy (principal)
CPT/HCPCS: 80061; 83721

== ENCOUNTER 2020-09-23 09:01 | Outpatient (CLI) | payer MEDICARE, MEDICAID ==
--- NOTE | 2020-09-23 14:48 | XRAY Report ---
PROCEDURE: Knee 4 View RT INDICATIONS: KNEE PAIN, RIGHT TECHNIQUE: 4 views of the right knee(s) were acquired. COMPARISON: None. FINDINGS: Bones: No acute fractures or dislocations. No suspicious bony lesions. Tricompartmental degenerati ve changes of the right knee most pronounced in the medial and patellofemoral compartments. There is moderate joint space loss of the lateral femorotibial compartment. Soft tissues: Small suprapatellar joint effusion. No suspicious soft tissue calcifications. IMPRESSION: Moderate tricompartmental osteoarthrosis of the right knee with small suprapatellar joint effusion. Reviewed by: Michael Gaona MD on 09/23/2020 2:47 PM PDT Approved by: Michael Gaona MD on 09/23/2020 2:47 PM PDT Station ID: [id number]
== END 2020-09-23 09:02 | disposition home or self-care (01) ==
LOC: DI.N 09:01
PROVIDERS: ATTEND Family Medicine
DX: M17.11 Unilateral primary osteoarthritis, right knee (principal)

== ENCOUNTER 2021-02-27 11:44 | Outpatient (CLI) | payer MEDICARE, MEDICAID ==
[2021-02-27] MEDS ORDERED: IOVERSOL 320 100 ML VIAL IVP ONE ×2 (12:09→13:59)
[2021-02-27] MEDS ORDERED: IOVERSOL 320 50 ML VIAL ONE (12:13)
[2021-02-27 12:21] LABS: HCT - HEMATOCRIT 40.1 % (37.0-47.0); HGB - HEMOGLOBIN 13.3 g/dL (12.0-16.0); MEAN CORPUSCULAR HEMOGLOBIN 30.9 pg (27.0-31.0); MEAN CORPUSCULAR HGB CONC 33.2 g/dL (32.0-36.0); MEAN CORPUSCULAR VOLUME 93.3 fL (81.0-99.0); MEAN PLATELET VOLUME 8.6 fL (7.9-10.8); NEUTROPHILS # (AUTO) 4.9 10^3/uL (1.5-6.6); NEUTROPHILS % (AUTO) 63.7 %; RED BLOOD COUNT 4.3 10^6/uL (4.20-5.40); WHITE BLOOD COUNT 7.7 x10^3/uL (4.8-10.8)
[2021-02-27 12:38] LABS: ALBUMIN 4.3 g/dL (3.2-5.5); ALBUMIN/GLOBULIN RATIO 1.1 (1.0-2.2); BILIRUBIN,TOTAL 0.8 mg/dL (0.2-1.0); CREATININE 0.5 mg/dL (0.4-1.0); POTASSIUM 4.2 mmol/L (3.5-5.0); TOTAL PROTEIN 8.1 g/dL (6.7-8.2)
[2021-02-27] MEDS ORDERED: IOVERSOL 320 50 ML VIAL PO ONE (13:59)
--- NOTE | 2021-02-27 17:23 | CT Report ---
PROCEDURE: CHEST W INDICATIONS: lung ca CONTRAST: IV CONTRAST: Optiray 320 ml: 100 PO CONTRAST: Optiray 320 ml50 TECHNIQUE: After the administration of intravenous contrast, 1 mm axial images were acquired from the pulmonary apices through the posterior costophrenic angles. Axial 5 mm soft tissue kernel reconstructions were performed as well as 8 mm axial MIP and coronal and sagittal 5 mm reformations. For radiation dose reduction, the following was used: automated exposure control, adjustment of mA and/or kV according to patient size. COMPARISON: 12/11/2020, 06/16/2020 FINDINGS: Image quality: Excellent. Lungs and pleura: No acute air space opacities. No pleural effusions or pneumothorax. Central and pe ripheral airways are patent and normal in caliber. Previously identified areas of presumed fibrotic c hanges with platelike consolidation or scarring at both bases as well as left upper lobe are again id entified. They are stable. No new areas of mass lesion or opacity are identified. There is unchanged elevation of the left hemidiaphragm. Mediastinum: Heart size is minimally enlarged. No pericardial effusion. No mediastinal or hilar ad enopathy by size criteria. Thoracic aorta and central pulmonary arteries are normal in size. Esopha edil is normal in caliber. No hiatal hernia. Bones and chest wall: No suspicious bony lesions. No vertebral body compression fractures. No axil maria luisa or supraclavicular adenopathy by size criteria. The thyroid is normal in size and there are no incidental findings.. IMPRESSION: 1. Stable bilateral fibrotic present scarring or atelectasis without change from prior exam. No evide nce of recurrent or residual disease. Reviewed by: Demetrio Tobar MD on 02/27/2021 4:21 PM [place] Approved by: Demetrio Tobar MD on 02/27/2021 4:21 PM [place] Station ID: [id number]
--- NOTE | 2021-02-27 17:27 | CT Report ---
PROCEDURE: CT abdomen and pelvis with contrast INDICATIONS: lung ca CONTRAST: IV CONTRAST: Optiray 320 ml: 100 PO CONTRAST: Optiray 320 ml50 TECHNIQUE: After the administration of intravenous contrast, 5 mm thick sections acquired from the diaphragms to the symphysis. 5 mm thick coronal and sagittal reformats were acquired. For radiation dose reducti on, the following was used: automated exposure control, adjustment of mA and/or kV according to gretel ent size. COMPARISON: 12/11/2020 FINDINGS: Image quality: Excellent. ABDOMEN: Solid organs: Liver and spleen are normal in size and enhancement. Tiny hypodensity present in the s egment II of the liver, and one present caudally in segment are stable. No new liver lesions. Gall bladder demonstrates no wall thickening. Biliary system is non dilated. Pancreas is atrophied and the re are no new masses or ductal dilatation. Both adrenal glands are unremarkable. Kidneys demonstrate normal size and enhancement, without hydronephrosis. Peritoneum and bowel: Bowel loops demonstrate normal wall thickness and caliber. No free fluid or a ir. Small infrarenal fusiform 3 cm aneurysm again noted, stable from the prior exam. Atherosclerotic calcification of the abdominal aorta. Aneurysm. Nodes and vessels: No retroperitoneal or mesenteric adenopathy by size criteria. Aorta and inferior vena cava are normal in size. Miscellaneous: No ventral hernias. PELVIS: Genitourinary: Bladder wall thickness is normal. Miscellaneous: Bilateral inguinal hernias contain fat without bowel involvement Bones: No suspicious bony lesions. No vertebral body compression fractures. Multilevel degenerativ e disc disease and arthropathy noted, stable IMPRESSION: 1. Stable CT abdomen and pelvis. No evidence of metastatic disease. 2. Stable abdominal aortic aneurysm, 3 cm 3. Subcentimeter hepatic hypodensities, stable Reviewed by: Demetrio Tobar MD on 02/27/2021 4:26 PM [place] Approved by: Demetrio Tobar MD on 02/27/2021 4:26 PM AKST Station ID: [id number]
== END 2021-02-27 11:45 | disposition home or self-care (01) ==
LOC: DI 11:44
PROVIDERS: ATTEND Internal Medicine Hematology & Oncology
DX: C34.92 Malignant neoplasm of unspecified part of left bronchus or lung (principal); C78.01 Secondary malignant neoplasm of right lung; I71.4 Abdominal aortic aneurysm, without rupture; R16.0 Hepatomegaly, not elsewhere classified
CPT/HCPCS: 36415; 71260; 74177; 80053; 84443; 85027; Q9967

== ENCOUNTER 2023-03-13 12:16 | Outpatient (CLI) | payer MEDICARE, MEDICAID | END 2023-03-13 12:17 | disposition critical access hospital (66) | LOC: EMS 12:16 | DX: R50.9 Fever, unspecified (principal); R06.00 Dyspnea, unspecified; R20.0 Anesthesia of skin; R53.1 Weakness | CPT/HCPCS: A0425; A0429 ==

== ENCOUNTER 2023-03-13 12:35 | Emergency (ER) | payer MEDICARE, MEDICAID ==
[2023-03-13] MEDS ORDERED: ACETAMINOPHEN 500 MG TABLET PO STA (12:43)
[2023-03-13] MEDS ORDERED: SODIUM CHLORIDE 0.9% 500 ML IV STA (12:43)
--- NOTE | 2023-03-13 12:48 | ED Physician Documentation ---
PD HPI FEVER - Stated complaint Stated Complaint: FEVER - History obtained from History obtained from: Patient - Additional information Additional information: Patient is a 77-year-old female with a history of lung cancer and COPD presentin g for evaluation of a fever that she noticed sometime this morning. Patient states that she went to bed and woke up this morning initially feeling well but throughout the morning has been feeling worse. She noted a fever at home. She has not had any Tylenol since 4:00 this morning which she takes for arthritis. Denies cough or congestion. Denies vomiting or diarrhea. Reports baseline incontinence with urination which is normal for her as well as some discomfort with urination which is new. Denies any known sick contacts. 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 HEENT: Tonsil/Adenoidectomy - Present Medications Home Medications: Ambulatory Orders Medication Instructions Recorded Confirmed Cholecalciferol (Vitamin D3) 4,000 units PO DAILY 11/18/17 01/03/23 [Vitamin D3] Multivitamin [Theragran] 1 tab PO DAILY 11/18/17 01/03/23 Zinc 50 mg PO DAILY 11/18/17 01/03/23 hydroCHLOROthiazide 6.25 mg ORAL DAILY 12/05/17 01/03/23 [Hydrochlorothiazide] Lidocaine/Prilocain 2.5% Cream 30 gm TOP PRN PRN #1 tube 12/27/17 01/03/23 [Emla 2.5% Cream] lisinopriL [Lisinopril] 10 mg ORAL PRN PRN 03/06/18 01/03/23 Metoprolol Tartrate 50 mg PO DAILY PRN 07/31/18 01/03/23 Levothyroxine Sodium [Euthyrox] 25 mcg PO DAILY 11/26/19 01/03/23 Acetaminophen [Tylenol Arthritis] 650 mg PO BID 02/01/22 01/03/23 Phenazopyridine HCl [Pyridium] 200 mg PO TID PRN #6 tablet 03/13/23 cephALEXin [Keflex] 500 mg PO Q6H #28 cap 03/13/23 - Allergies Allergies/Adverse Reactions: Allergies Allergy/AdvReac Type Severity Reaction Status Date / Time oxycodone [From Percocet] AdvReac Rash Verified 03/13/23 12:41 - Social History Does the pt smoke?: No Smoking Status: Former smoker (quit 3 years ago. 50 pack year) PD ED PE NORMAL - General General: Alert and oriented X 3, No acute distress, Well developed/nourished - HEENT HEENT: Atraumatic - Neck Neck: Supple, no meningeal sign - Cardiac Cardiac: Other (Tachycardic, regular rhythm) - Respiratory Respiratory: No respiratory distress, Clear bilaterally - Abdomen Abdomen: Normal bowel sounds, Soft, Non tender, Non distended - Derm Derm: Warm and dry - Neuro Neuro: Alert and oriented X 3, Normal speech Results - Vitals Vitals: Vital Signs - 24 hr 03/13/23 03/13/23 03/13/23 12:41 12:44 14:44 Temperature 39.5 C H 39.5 C H Heart Rate 120 H 120 H 97 Respiratory 22 22 22 Rate Blood Pressure 166/74 H 166/74 H 144/82 H O2 Saturation 96 96 94 Oxygen O2 Source Room air - EKG (time done) 1324 EKG releavant findings:: EKG personally interpreted by author of this note. Relevant findings are: Rate 127, sinus tachycardia, no STEMI - Labs Labs: Laboratory Tests 03/13/23 03/13/23 03/13/23 13:00 13:00 13:00 WBC 13.5 H RBC 3.18 L Hgb 9.8 L Hct 30.9 L MCV 97.2 MCH 30.8 MCHC 31.7 L RDW 13.5 Plt Count 324 MPV 8.6 Neut # (Auto) 10.6 H Lymph # (Auto) 1.4 L [place] # (Auto) 1.3 H Eos # (Auto) 0.2 Baso # (Auto) 0.0 Absolute Nucleated RBC 0.00 Nucleated RBC % 0.0 Sodium 134 L Potassium 4.1 Chloride 101 Carbon Dioxide 24 Anion Gap 9.0 BUN 24 H Creatinine 0.8 Estimated GFR (MDRD) 69 L Glucose 115 H Lactic Acid 0.7 Calcium 9.8 Total Bilirubin 0.4 AST 21 ALT 25 Alkaline Phosphatase 82 Total Protein 7.7 Albumin 3.7 Globulin 4.0 Albumin/Globulin Ratio 0.9 L Lipase 80 Urine Color Urine Clarity Urine pH Ur Specific [place] Urine Protein Urine Glucose (UA) Urine Ketones Urine Occult Blood Urine Nitrite Urine Bilirubin Urine Urobilinogen Ur Leukocyte Esterase Urine RBC Urine WBC Urine WBC Clumps Ur Squamous Epith Cells Urine Bacteria Ur Microscopic Review Urine Culture Comments Nasal Adenovirus (PCR) Nasal B. parapertussis DNA (PCR) Nasal Coronavir 229E PCR Nasal Coronavir HKU1 PCR Nasal Coronavir NL63 PCR Nasal Coronavir OC43 PCR Nasal Enterovir/Rhinovir PCR Nasal Influenza B PCR Nasal Influenza A PCR Nasal Parainfluen 1 PCR Nasal Parainfluen 2 PCR Nasal Parainfluen 3 PCR Nasal Parainfluen 4 PCR Nasal RSV (PCR) Nasal B.pertussis DNA PCR Nasal C.pneumoniae (PCR) [place] Human Metapneumo PCR Nasal M.pneumoniae (PCR) Nasal SARS-CoV-2 (PCR) 03/13/23 03/13/23 13:36 13:42 WBC RBC Hgb Hct MCV MCH MCHC RDW Plt Count MPV Neut # (Auto) Lymph # (Auto) [place] # (Auto) Eos # (Auto) Baso # (Auto) Absolute Nucleated RBC Nucleated RBC % Sodium Potassium Chloride Carbon Dioxide Anion Gap BUN Creatinine Estimated GFR (MDRD) Glucose Lactic Acid Calcium Total Bilirubin AST ALT Alkaline Phosphatase Total Protein Albumin Globulin Albumin/Globulin Ratio Lipase Urine Color LIGHT YELLOW Urine Clarity CLOUDY Urine pH 6.0 Ur Specific [place] 1.015 Urine Protein 100 H Urine Glucose (UA) NEGATIVE Urine Ketones NEGATIVE Urine Occult Blood SMALL H Urine Nitrite POSITIVE H Urine Bilirubin NEGATIVE Urine Urobilinogen 0.2 (NORMAL) Ur Leukocyte Esterase LARGE H Urine RBC 0-5 Urine WBC >25 H Urine WBC Clumps PRESENT Ur Squamous Epith Cells RARE Squamous Urine Bacteria Many H Ur Microscopic Review INDICATED Urine Culture Comments INDICATED Nasal Adenovirus (PCR) NOT DETECTED Nasal B. parapertussis DNA (PCR) NOT DETECTED Nasal Coronavir 229E PCR NOT DETECTED Nasal Coronavir HKU1 PCR NOT DETECTED Nasal Coronavir NL63 PCR NOT DETECTED Nasal Coronavir OC43 PCR NOT DETECTED Nasal Enterovir/Rhinovir PCR NOT DETECTED Nasal Influenza B PCR NOT DETECTED Nasal Influenza A PCR NOT DETECTED Nasal Parainfluen 1 PCR NOT DETECTED Nasal Parainfluen 2 PCR NOT DETECTED Nasal Parainfluen 3 PCR NOT DETECTED Nasal Parainfluen 4 PCR NOT DETECTED Nasal RSV (PCR) NOT DETECTED Nasal B.pertussis DNA PCR NOT DETECTED Nasal C.pneumoniae (PCR) NOT DETECTED [place] Human Metapneumo PCR NOT DETECTED Nasal M.pneumoniae (PCR) NOT DETECTED Nasal SARS-CoV-2 (PCR) NOT DETECTED PD Medical Decision Making - ED course Complexity details: reviewed results, re-evaluated patient, d/w patient ED course: 1500 - Reevaluated patient. Son is at the bedside. Repeat abdominal exam is benign. Patient is a 77-year-old female presenting for evaluation of a fever that she noticed sometime today. She does have baseline incontinence but has reported some recent dysuria. No other known symptoms. She is febrile here with tachycardia. This improved with Tylenol as well as IV fluids. Her abdominal exam remained benign. CBC with mild leukocytosis of 13,000, normal chemistries. Urinalysis is concerning for infection. Repeat abdominal exam remains benign and she has no symptoms to suggest a ureter stone. She is feeling better here and would like to go home. Given a dose of Rocephin and will continue on antibiotics. Patient and family counseled on treatment plan as well as concerning symptoms to return for. Departure - Departure Disposition: 01 Home, Self Care Clinical Impression: Fever, UTI (urinary tract infection) Condition: Stable Instructions: ED UTI Cystitis Female Prescriptions: cephALEXin [Keflex] 500 mg PO Q6H #28 cap Phenazopyridine HCl [Pyridium] 200 mg PO TID PRN #6 tablet PRN Reason: dysuria Comments: You were evaluated for a fever today. Your testing shows that you have a urine infection I have started you on an antibiotic for this. I am sending a prescription to [facility] in [place]. We are also sending the urine for culture. If your urine culture grows out an organism that needs a different antibiotic we will notify you. I have sent your prescriptions to [facility] in [place]. Please make sure to complete the course of the antibiotics. Return to the emergency department if you develop any worsening symptoms such as pain Or inability to tolerate your antibiotic. Forms: PCP List Discharge Date/Time: 03/13/23 15:54
[2023-03-13 13:17] LABS: BASOPHILS % (AUTO) 0.2 %; EOSINOPHILS # (AUTO) 0.2 10^3/uL (0.0-0.7); EOSINOPHILS % (AUTO) 1.1 %; HCT - HEMATOCRIT 30.9 % (37.0-47.0); HGB - HEMOGLOBIN 9.8 g/dL (12.0-16.0); LYMPHOCYTES # (AUTO) 1.4 10^3/uL (1.5-3.5); LYMPHOCYTES % (AUTO) 10.1 %; MEAN CORPUSCULAR HEMOGLOBIN 30.8 pg (27.0-31.0); MEAN CORPUSCULAR HGB CONC 31.7 g/dL (32.0-36.0); MEAN CORPUSCULAR VOLUME 97.2 fL (81.0-99.0); MEAN PLATELET VOLUME 8.6 fL (7.9-10.8); MONOCYTES # (AUTO) 1.3 10^3/uL (0.0-1.0); MONOCYTES % (AUTO) 9.4 %; NEUTROPHILS # (AUTO) 10.6 10^3/uL (1.5-6.6); NEUTROPHILS % (AUTO) 78.8 %; PLT - PLATELET COUNT 324 10^3/uL (130-450); RED BLOOD COUNT 3.18 10^6/uL (4.20-5.40); RED CELL DISTRIBUTION WIDTH 13.5 % (12.0-15.0); WHITE BLOOD COUNT 13.5 x10^3/uL (4.8-10.8)
[2023-03-13 13:34] LABS: ALBUMIN 3.7 g/dL (3.2-5.5); ALBUMIN/GLOBULIN RATIO 0.9 (1.0-2.2); BILIRUBIN,TOTAL 0.4 mg/dL (0.2-1.0); CALCIUM 9.8 mg/dL (8.5-10.3); CREATININE 0.8 mg/dL (0.6-1.3); POTASSIUM 4.1 mmol/L (3.5-4.5); TOTAL PROTEIN 7.7 g/dL (6.4-8.9)
[2023-03-13 13:59] LABS: BILIRUBIN,URINE NEGATIVE (NEGATIVE); GLUCOSE, URINE (UA) NEGATIVE (NEGATIVE); KETONES,URINE (UA) NEGATIVE (NEGATIVE); LEUKOCYTE ESTERASE, URINE LARGE (NEGATIVE); NITRITE,URINE POSITIVE (NEGATIVE); OCCULT BLOOD,URINE SMALL (NEGATIVE); PROTEIN,URINE 100 mg/dL (NEGATIVE); UROBILINOGEN,URINE 0.2 (NORMAL) E.U./dL (NORMAL)
[2023-03-13 14:00] LABS: CLARITY,URINE CLOUDY (CLEAR)
[2023-03-13 14:01] LABS: WBC,URINE >25 /HPF (0-5)
[2023-03-13 14:02] LABS: BACTERIA,URINE Many /HPF (None Seen); RBC,URINE 0-5 /HPF (0-5); SQUAMOUS EPITHELIAL CELL,UR RARE Squamous (<= Few); WBC CLUMPS,URINE PRESENT
--- NOTE | 2023-03-13 14:29 | XRAY Report ---
PROCEDURE: Chest 1 View X-Ray INDICATIONS: fever TECHNIQUE: One view of the chest was acquired. COMPARISON: CT chest on October 04, 2022. FINDINGS: Surgical changes and devices: Left sided port terminates in the upper SVC.. Lungs and pleura: No pleural effusions or pneumothorax. Left basilar atelectasis. Lungs are otherwis e clear. Mediastinum: Mediastinal contours appear normal. Heart size is normal. Bones and chest wall: No suspicious bony lesions. Overlying soft tissues appear unremarkable. Stab le elevation of the left hemidiaphragm. IMPRESSION: 1.No acute cardiopulmonary process. 2.Stable elevation of the left hemidiaphragm, which may be seen in setting of phrenic nerve dysfuncti on, with basilar atelectasis. Reviewed by: Davidson Díaz MD on 03/13/2023 2:21 PM PST Approved by: Davidson Díaz MD on 03/13/2023 2:21 PM PST Station ID: [id number]
[2023-03-13 14:31] LABS: B. PARAPERTUSSIS- RESP PCR PAN NOT DETECTED; B. PERTUSSIS- RESP PCR PANEL NOT DETECTED; C. PNEUMONIAE- RESP PCR PANEL NOT DETECTED; CORONAVIRUS 229E-RESP PCR NOT DETECTED; CORONAVIRUS HKU1-RESP PCR NOT DETECTED; CORONAVIRUS NL63-RESP PCR NOT DETECTED; CORONAVIRUS OC43-RESP PCR NOT DETECTED; HUMAN METAPNEUMOVIRUS NOT DETECTED; INFLUENZA A- RESP PCR PANEL NOT DETECTED; INFLUENZA B - RESP PCR PANEL NOT DETECTED; M. PNEUMONIAE- RESP PCR PANEL NOT DETECTED; PARAINFLUENZA VIRUS 1 NOT DETECTED; PARAINFLUENZA VIRUS 2 NOT DETECTED; PARAINFLUENZA VIRUS 3 NOT DETECTED; PARAINFLUENZA VIRUS 4 NOT DETECTED; RHINOVIRUS/ENTEROVIRUS NOT DETECTED; RSV- RESP PCR PANEL NOT DETECTED; SARS-CoV-2 -RESP PCR PANEL NOT DETECTED
[2023-03-13] MEDS ORDERED: cefTRIAXone 1 GM in SODIUM CHLORIDE 0.9% MINIBAG 100 ML IV STA (14:48)
[2023-03-13 14:50] VITALS: BP 144/82; O2SAT 94
== END 2023-03-13 15:54 | disposition home or self-care (01) ==
LOC: EDUNIT# → ED 12:35
DX: N39.0 Urinary tract infection, site not specified (principal); R00.0 Tachycardia, unspecified; Z87.891 Personal history of nicotine dependence
CPT/HCPCS: 36415; 51701; 71045; 80053; 81001; 83605; 83690; 85025; 87040; 87086; 87181; 87633; 93005; 96365; 96375; 99284; A9270; 81003

== ENCOUNTER 2023-05-01 08:00 | Outpatient (CLI) | payer MEDICARE, MEDICAID ==
[2023-05-01 18:03] LABS: BILIRUBIN,URINE NEGATIVE (NEGATIVE); GLUCOSE, URINE (UA) NEGATIVE (NEGATIVE); KETONES,URINE (UA) NEGATIVE (NEGATIVE); LEUKOCYTE ESTERASE, URINE LARGE (NEGATIVE); NITRITE,URINE NEGATIVE (NEGATIVE); OCCULT BLOOD,URINE SMALL (NEGATIVE); PH,URINE 5.5 PH (5.0-7.5); PROTEIN,URINE TRACE mg/dL (NEGATIVE); UROBILINOGEN,URINE 0.2 (NORMAL) E.U./dL (NORMAL)
[2023-05-01 18:06] LABS: CLARITY,URINE CLOUDY (CLEAR)
[2023-05-01 18:16] LABS: BACTERIA,URINE Many /HPF (None Seen); SQUAMOUS EPITHELIAL CELL,UR NONE SEEN (<= Few); WBC,URINE >25 /HPF (0-5)
== END 2023-05-01 23:59 | disposition home or self-care (01) ==
LOC: LAB.WCP 08:00
PROVIDERS: ATTEND Nurse Practitioner
DX: R30.0 Dysuria (principal)
CPT/HCPCS: 81001; 87086; 87181

== ENCOUNTER 2023-07-03 17:54 | Emergency (ER) | payer MEDICARE, MEDICAID ==
[2023-07-03 18:34] LABS: BILIRUBIN,URINE NEGATIVE (NEGATIVE); GLUCOSE, URINE (UA) NEGATIVE (NEGATIVE); KETONES,URINE (UA) NEGATIVE (NEGATIVE); LEUKOCYTE ESTERASE, URINE LARGE (NEGATIVE); NITRITE,URINE NEGATIVE (NEGATIVE); OCCULT BLOOD,URINE LARGE (NEGATIVE); PH,URINE 6.5 PH (5.0-7.5); PROTEIN,URINE >=300 mg/dL (NEGATIVE); UROBILINOGEN,URINE 0.2 (NORMAL) E.U./dL (NORMAL)
[2023-07-03 18:37] LABS: CLARITY,URINE TURBID (CLEAR)
[2023-07-03 18:46] LABS: BACTERIA,URINE Rare /HPF (None Seen); SQUAMOUS EPITHELIAL CELL,UR NONE SEEN (<= Few); WBC CLUMPS,URINE PRESENT; WBC,URINE >25 /HPF (0-5)
--- NOTE | 2023-07-03 20:25 | ED Physician Documentation ---
History of Present Illness - Stated complaint Stated Complaint: - Chief complaint Chief Complaint: UTI - History obtained from History obtained from: Patient - Additonal information Additional information: Patient comes to the emergency department chief complaint of dysuria that started today. She denies any fevers or chills or nausea or vomiting. She has a history of recurrent UTIs just this year and states that before this year she had never had 1 at all. Now she is on her fifth or 6 urinary tract infection for the years she thinks. Patient states that her primary provider told her that if she had another UTI, she was going to be referred to urology for follow- up. No other complaints at this time. She is accompanied by her son. 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 HEENT: Tonsil/Adenoidectomy - Present Medications Home Medications: Ambulatory Orders Medication Instructions Recorded Confirmed Cholecalciferol (Vitamin D3) 4,000 units PO DAILY 11/18/17 06/20/23 [Vitamin D3] Multivitamin [Theragran] 1 tab PO DAILY 11/18/17 06/20/23 Zinc 50 mg PO DAILY 11/18/17 06/20/23 hydroCHLOROthiazide 6.25 mg ORAL DAILY 12/05/17 06/20/23 [Hydrochlorothiazide] Lidocaine/Prilocain 2.5% Cream 30 gm TOP PRN PRN #1 tube 12/27/17 06/20/23 [Emla 2.5% Cream] lisinopriL [Lisinopril] 10 mg ORAL PRN PRN 03/06/18 06/20/23 Metoprolol Tartrate 50 mg PO DAILY PRN 07/31/18 06/20/23 Levothyroxine Sodium [Euthyrox] 25 mcg PO DAILY 11/26/19 06/20/23 Acetaminophen [Tylenol Arthritis] 650 mg PO BID 02/01/22 06/20/23 Sulfamethox/Trimeth 800/160 1 each PO BID #14 tablet 07/03/23 [Bactrim Ds 800/160] - Allergies Allergies/Adverse Reactions: Allergies Allergy/AdvReac Type Severity Reaction Status Date / Time oxycodone [From Percocet] AdvReac Rash Verified 07/03/23 18:08 - Social History Does the pt smoke?: No Smoking Status: Never smoker Does the pt drink ETOH?: No Does the pt have substance abuse?: No - Immunizations Immunizations are current?: Yes - POLST Patient has POLST: No PD ED PE NORMAL - Vitals Vital signs reviewed: Yes - General General: Alert and oriented X 3, No acute distress, Well developed/nourished - HEENT HEENT: Atraumatic, PERRL, EOMI, Moist mucous membranes - Neck Neck: Supple, no meningeal sign - Cardiac Cardiac: RRR, No murmur - Respiratory Respiratory: No respiratory distress, Clear bilaterally - Abdomen Abdomen: Soft, Non tender, Non distended - Back Back: No CVA TTP - Derm Derm: Normal color, Warm and dry, No rash - Extremities Extremities: No deformity - Neuro Neuro: Other (Alert, appropriate, grossly intact.) - Psych Psych: Normal mood, Normal affect Results - Vitals Vitals: Vital Signs - 24 hr 07/03/23 07/03/23 18:11 18:14 Temperature 37.0 C 37.0 C Heart Rate 97 97 Respiratory 16 16 Rate Blood Pressure 139/83 H 139/83 H O2 Saturation 95 95 Oxygen O2 Source Room air - Labs Labs: Laboratory Tests 07/03/23 18:28 Urine Color YELLOW Urine Clarity TURBID Urine pH 6.5 Ur Specific [place] 1.020 Urine Protein >=300 H Urine Glucose (UA) NEGATIVE Urine Ketones NEGATIVE Urine Occult Blood LARGE H Urine Nitrite NEGATIVE Urine Bilirubin NEGATIVE Urine Urobilinogen 0.2 (NORMAL) Ur Leukocyte Esterase LARGE H Urine RBC 11-25 H Urine WBC >25 H Urine WBC Clumps PRESENT Ur Squamous Epith Cells NONE SEEN Urine Bacteria Rare Ur Microscopic Review INDICATED Urine Culture Comments INDICATED PD Medical Decision Making - ED course Complexity details: reviewed results, re-evaluated patient, considered differential, d/w patient, d/w family ED course: Patient's urinalysis was positive for infection. She was given a dose of Bactrim here in the emergency department and a prescription for the same was sent to the pharmacy of her choice. Patient already is taking Azo at home and can continue this. I have given her the phone number for the local urology clin ic though the patient will most likely need to follow-up with her primary to get a referral. We have discussed the usual indications for return. Departure - Departure Disposition: 01 Home, Self Care Clinical Impression: Urinary tract infection Qualifiers: Urinary tract infection type: acute cystitis Hematuria presence: with hematuria Qualified Code(s): N30.01 - Acute cystitis with hematuria Condition: Stable Instructions: ED UTI Cystitis Female Follow-Up: Darnell Garcia MD [Provider Admit Priv/Credential] - Prescriptions: Sulfamethox/Trimeth 800/160 [Bactrim Ds 800/160] 1 each PO BID #14 tablet Comments: Your urinalysis is positive for infection. 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 You have been given your first dose here in the emergency department tonight. Please take all your antibiotics, as prescribed, until the course is complete. Please follow-up with your primary doctor. You may also call the urology clinic at the number provided, and see if they will see without a referral. However, you will most likely need to see your primary to get a referral first. Please continue to drink plenty of water to help flush your bladder and discourage further infection.
[2023-07-03] MEDS: SULFAMETH/TRIMETH DS 800/160 MG TABLET PO STA (20:31)
[2023-07-03 20:40] VITALS: BP 130/80; O2SAT 96
== END 2023-07-03 20:36 | disposition home or self-care (01) ==
LOC: ED 17:54
DX: N30.01 Acute cystitis with hematuria (principal)
CPT/HCPCS: 81001; 87086; 99283; A9270; 81003; 87181

== ENCOUNTER 2023-08-18 08:00 | Outpatient (CLI) | payer MEDICARE, MEDICAID | END 2023-08-18 23:59 | disposition home or self-care (01) | LOC: LAB 08:00 | PROVIDERS: ATTEND Urology | DX: N39.0 Urinary tract infection, site not specified (principal) | CPT/HCPCS: 87086 ==

== ENCOUNTER 2023-09-04 13:48 | Outpatient (CLI) | payer MEDICARE, MEDICAID ==
--- NOTE | 2023-09-04 15:04 | Ultrasound Report ---
PROCEDURE: Renal (Retroperitoneal) INDICATIONS: HYDRONEPHROSIS TECHNIQUE: Real-time scanning was performed of the retroperitoneal organs, with image documentation. COMPARISON: CT abdomen pelvis 03/21/2023 FINDINGS: Kidneys: Kidneys are normal in size. Right kidney measures 11.4 cm long; left kidney measures 10.7 cm long. Right renal cortical thickness is 1.0 cm; left renal cortical thickness is 1.2 cm. Pre and post void the right-sided moderate hydronephrosis. Osteoporosis and left is seen only after v oiding. Bladder: Pre-void bladder volume is 470 mL. Post-void residual is 441 mL. Pre-void images demonstr ate no intraluminal masses or stones. On pre-void images, bilateral ureteral jets are noted with col or Doppler interrogation. (Of note, ureteral jets may not be detectable in up to 25% of cases due to insufficient differences in specific gravity between ureteral and bladder urine). Miscellaneous: No free abdominal fluid. IMPRESSION: Bilateral hydronephrosis as above. Significant postvoid residual Reviewed by: Demetrio Tobar MD on 09/04/2023 2:03 PM AKDT Approved by: Demetrio Tobar MD on 09/04/2023 2:03 PM AKDT Station ID: [id number]
== END 2023-09-04 13:49 | disposition home or self-care (01) ==
LOC: DI 13:48
PROVIDERS: ATTEND Urology
DX: N13.30 Unspecified hydronephrosis (principal)

== ENCOUNTER 2023-10-02 06:25 | Day surgery (SDC) | payer MEDICARE, MEDICAID ==
[~2023-10-02 06:25] MED LIST: ceFAZolin 2 GM VIAL ONE
[2023-10-02] MEDS: LACTATED RINGERS 1,000 ML IV ONE ×2 (06:51→08:20)
[2023-10-02] MEDS ORDERED: PROPOFOL 200 MG/20 ML VIAL IVP ONE (07:04)
[2023-10-02] MEDS ORDERED: LIDOCAINE 2% URO-JET 5 ML SYRINGE UR ONE (07:05)
[2023-10-02] MEDS ORDERED: fentaNYL 100 MCG/2 ML VIAL ONE (07:05)
[2023-10-02] MEDS ORDERED: iohexoL-240 10 ML VIAL IVP ONE (07:14)
--- NOTE | 2023-10-02 07:17 | ANESTHESIA ---
Pre-Anesthesia VS, & Labs - Diagnosis bilateral hydronephrosis - Procedure cystoscopy and bilateral ureteroscopy Vital Signs: Temp Pulse Resp BP Pulse Ox O2 Flow Rate 36.6 C 102 H 17 172/103 H 97 10/02/23 06:52 10/02/23 06:52 10/02/23 06:52 10/02/23 06:52 10/02/23 06:52 Height: 5 ft 5 in Weight (kg): 83.2 kg Body Mass Index: 30.5 BMI Classification: Obese - NPO >8 hours - Is Patient ?: No Home Medications and Allergies Home Medications: Ambulatory Orders Acetaminophen [Tylenol Arthritis] 2 tab PO Q8HR 09/22/23 Cetirizine [ZyrTEC] 10 mg PO DAILY 09/22/23 Cranberry Fruit Extract [Cranberry] 250 mg PO DAILY 09/22/23 Lysine [l-Lysine] 500 mg PO PRN PRN 09/22/23 Metoprolol Succinate [Toprol Xl] 25 mg PO DAILY 09/22/23 Cholecalciferol (Vitamin D3) [Vitamin D3] 4,000 units PO DAILY 11/18/17 Multivitamin [Theragran] 1 tab PO DAILY 11/18/17 Zinc 50 mg PO DAILY 11/18/17 hydroCHLOROthiazide [Hydrochlorothiazide] 6.25 mg PO DAILY 12/05/17 lisinopriL [Lisinopril] 10 mg PO DAILY 03/06/18 Levothyroxine Sodium [Euthyrox] 25 mcg PO DAILY 11/26/19 Acetaminophen [Tylenol Arthritis] 2 tab PO Q8HR 09/22/23 Cetirizine [ZyrTEC] 10 mg PO DAILY 09/22/23 Cranberry Fruit Extract [Cranberry] 250 mg PO DAILY 09/22/23 Lysine [l-Lysine] 500 mg PO PRN PRN 09/22/23 Metoprolol Succinate [Toprol Xl] 25 mg PO DAILY 09/22/23 keytruda Allergies/Adverse Reactions: Allergies Allergy/AdvReac Type Severity Reaction Status Date / Time aspirin [From Percodan] AdvReac Itching Verified 09/22/23 11:42 oxycodone [From Percodan] AdvReac Itching Verified 09/22/23 11:42 Anes History & Medical History - Anesthetic History Anesthesia Complications: reports: No previous complications - Medical History Cardiovascular: reports: Hypertension, Arrhythmia (SVT) Pulmonary: reports: COPD, Other (lung cancer) Gastrointestinal: reports: None Urinary: reports: Incontinence, Chronic bladder infection Neuro: reports: None Musculoskeletal: reports: Osteoarthritis Endocrine/Autoimmune: reports: HyPOthyroidism Blood Disorders: reports: None Skin: reports: Psoriasis Smoking Status: Former smoker (quit 2013) Psychosocial: reports: No issues indicated History of Cancer?: Yes (lung cancer s/p chemo) - Surgical History General: reports: Appendectomy Eyes Ears Nose Throat (EENT): reports: Tonsil/Adenoidectomy Gynecologic: reports: Hysterectomy Exam General: Alert, Oriented x3, Cooperative, No acute distress Dental: Poor dentition Mouth Openin Fingerbreadth Mallampati classification: II Thyromental Distance: 4-6 cm Mental/Cognitive Status: Alert/Oriented X3, Normal for patient Plan Anesthesia Type: General Consent for Procedure(s) Verified and Reviewed: Yes Code Status: Attempt Resuscitation ASA classification: 3-Severe systemic disease Is this case an emergency?: No
[2023-10-02] MEDS ORDERED: ATROPINE ABBOJECT 1 MG/10 ML SYRINGE IVP PRN (07:21)
[2023-10-02] MEDS ORDERED: MORPHINE 2 MG/ML CARPUJECT IVP PRN (07:21)
[2023-10-02] MEDS ORDERED: HYDROmorphone 0.5 MG/0.5 ML SYRINGE IVP PRN (07:21)
[2023-10-02] MEDS ORDERED: NALOXONE 0.4 MG/ML VIAL IVP PRN (07:21)
[2023-10-02] MEDS ORDERED: fentaNYL 100 MCG/2 ML VIAL IVP PRN (07:21)
[2023-10-02] MEDS ORDERED: ONDANSETRON 4 MG/2 ML VIAL IVP PRN (07:21)
[2023-10-02] MEDS ORDERED: MIDAZOLAM 2 MG/2 ML VIAL ONE (07:22)
[2023-10-02] MEDS ORDERED: ONDANSETRON 4 MG/2 ML VIAL ONE (07:46)
[2023-10-02] MEDS ORDERED: DEXAMETHASONE 4 MG/ML VIAL ONE (07:46)
[2023-10-02] MEDS ORDERED: LACTATED RINGERS 1,000 ML IV SCH (08:00)
[2023-10-02] MEDS: iohexoL-240 10 ML VIAL IVP ONE (08:05)
[2023-10-02] MEDS: LIDOCAINE 2% URO-JET 5 ML SYRINGE UR ONE (08:05)
[2023-10-02] MEDS ORDERED: HYDROcod/ACETAM 5/325 MG TABLET PO PRN (08:26)
--- NOTE | 2023-10-02 08:31 | Discharge Plan ---
Discharge Plan Problem Reviewed?: Yes Disposition: Home, Self Care Condition: Good Diet: Regular Activity Restrictions: No Restrictions Shower Restrictions: No Driving Restrictions: No Instruction Topics: Transurethral Bladder Biopsy Additional Instructions or Follow Up instructions: You will be contacted for follow-up with Dr. Garcia in 1 to 2 weeks No Smoking: If you smoke, Please STOP! Call for help. Follow-up with: Abbie Coyne ARNP [Primary Care Provider] - Darnell Garcia MD [Provider Admit Priv/Credential] -
--- NOTE | 2023-10-02 08:34 | OPERATIVE REPORT ---
Operative Report - General Procedure Date: 10/02/23 Planned Procedure: Cystoscopy, bilateral retrograde pyelogram, possible ureteral stent stent placement, possible ureteral dilation Pre-Op Diagnosis: Urinary retension and bilateral hydroureteronephrosis Procedure Performed: Cystoscopy, bilateral retrograde pyelogram, interpretation of fluoroscopic images, bladder biopsy Post Op Diagnosis: Urinary retention, bilateral refluxing ureters, bladder lesion - Procedure Note Primary Surgeon: Jose Anesthesia Provider: STEVEN Diego Pathology: bladder lesion Indications: Enlarged bladder, bilateral hydroureteronephrosis Findings: Enlarged bladder. No trabeculations. Bladder appears to have normal compliance. Bilateral refluxing ureters. Bladder lesion posterior/anterior Complications: none - Other Other Information/Narrative: After informed consent was obtained the patient was brought to the OR and laid in the supine position. She was anesthetized per anesthesia protocols and placed in the dorsolithotomy position. A timeout was performed reconfirming patient, procedure and laterality. A 22 [place] cystoscope was advanced easily into urinary bladder. The bladder was noted to be enlarged. The bladder mucosa showed areas of atypical erythematous lesions specifically there was a 5 cm patch on the posterior portion of the bladder extending through the dome to the anterior portion. Other portions of the bladder mucosa appeared normal. There were no trabeculations. There were no niurka papillary tumors. Her ureteral orifice on the right side was slightly posterior located but relatively medialized, her left ureteral orifice was quite lateral and posterior from the expected position. Using a 5 [place] open-ended ureteral catheter a gentle retrograde pyelogram was performed on both sides. Both of her ureters showed severe hydroureteronephrosis with tortuosity all the way to the level of the UVJ. We could see that this easily and immediately drained. Her ureteral orifices appea red incompetent and very clearly these are refluxing UOs. Using a 26 [place] resectoscope on the bipolar setting with loop electrocautery we performed a small bladder biopsy of approximately half a centimeter length of the lesion anteriorly. This was sent for analysis. Cautery was used for hemostasis. She was noted to have oozy tissue. Her bladder was emptied and Uro-Jet was placed. This concluded the procedure Patient was brought to PACU without further incident. All counts were correct. She will follow-up with me in 1 to 2 weeks time
[2023-10-02 09:07] VITALS: BP 159/74; O2SAT 97
--- NOTE | 2023-10-02 16:11 | ANESTHESIA POST OP EVALUATION ---
Anesthesia Post Eval - Post Anesthesia Eval Vitals: Last Vital Signs Temp 36.1 C L 10/02/23 08:50 Pulse 73 10/02/23 08:55 Resp 16 10/02/23 08:55 BP 159/74 H 10/02/23 08:55 Pulse Ox 97 10/02/23 08:55 O2 Flow Rate CV Function Including HR & BP: Stable Pain Control: Satisfactory Nausea & Vomiting: Negative Mental Status: Baseline Respiratory Status: Airway Patent Hydration Status: Satisfactory Anesthesia Complications: None
--- NOTE | 2023-10-02 17:43 | XRAY Report ---
PROCEDURE: OR C-Arm Procedure INDICATIONS: CYSTO/STENT PLACEMENT FLUORO TIME: 0.2 MIN TECHNIQUE: Multiple intraoperative fluoroscopic images were obtained COMPARISON: None. FINDINGS: Intraoperative fluoroscopic images demonstrate retrograde opacification of the right distal ureter. IMPRESSION: Intraoperative fluoroscopic images of right retrograde nephrostogram. Reviewed by: Kerry Tejeda MD on 10/02/2023 5:41 PM PDT Approved by: Kerry Tejeda MD on 10/02/2023 5:41 PM PDT Station ID: [id number]
== END 2023-10-02 06:26 | disposition home or self-care (01) ==
LOC: SDS 06:25
PROVIDERS: ATTEND Urology
PROC: BT141ZZ Fluoroscopy of Kidneys, Ureters and Bladder using Low Osmolar Contrast (ICD-10-PCS; 2023-10-02)
PROC: 0TBB8ZX Excision of Bladder, Via Natural or Artificial Opening Endoscopic, Diagnostic (ICD-10-PCS; principal; 2023-10-02 07:30)
DX: N13.30 Unspecified hydronephrosis (principal); N32.9 Bladder disorder, unspecified; N13.70 Vesicoureteral-reflux, unspecified; E66.9 Obesity, unspecified; Z68.30 Body mass index [BMI] 30.0-30.9, adult; I10 Essential (primary) hypertension; J44.9 Chronic obstructive pulmonary disease, unspecified; Z85.118 Personal history of other malignant neoplasm of bronchus and lung; Z87.891 Personal history of nicotine dependence
CPT/HCPCS: 52005; 52204; 74420; C1758; J7120; Q9966

== ENCOUNTER 2023-10-11 10:32 | Emergency (ER) | payer MEDICARE, MEDICAID ==
--- NOTE | 2023-10-11 11:30 | ED Physician Documentation ---
PD HPI FEMALE - Stated complaint Stated Complaint: - Chief complaint Chief Complaint: Abd Pain - History obtained from History obtained from: Patient - History of Present Illness Timing - details: Abrupt onset, Still present Associated symptoms: Hematuria (just today). No: Fever, Dysuria Recently seen: Surgery (9 days prior on October 01, had cystoscopy with biopsies here Dr. Patrick. No bleeding after. Was doing okay until today with gross hematuria. 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 HEENT: Tonsil/Adenoidectomy - Present Medications Home Medications: Ambulatory Orders Medication Instructions Recorded Confirmed Cholecalciferol (Vitamin D3) 4,000 units PO DAILY 11/18/17 10/11/23 [Vitamin D3] Multivitamin [Theragran] 1 tab PO DAILY 11/18/17 10/11/23 Zinc 50 mg PO DAILY 11/18/17 10/11/23 hydroCHLOROthiazide 6.25 mg PO DAILY 12/05/17 10/11/23 [Hydrochlorothiazide] Lidocaine/Prilocain 2.5% Cream 30 gm TOP PRN PRN #1 tube 12/27/17 10/11/23 [Emla 2.5% Cream] lisinopriL [Lisinopril] 10 mg PO DAILY 03/06/18 10/11/23 Levothyroxine Sodium [Euthyrox] 25 mcg PO DAILY 11/26/19 10/11/23 Acetaminophen [Tylenol Arthritis] 2 tab PO Q8HR 09/22/23 10/11/23 Cetirizine [ZyrTEC] 10 mg PO DAILY 09/22/23 10/11/23 Cranberry Fruit Extract [Cranberry] 250 mg PO DAILY 09/22/23 10/11/23 Lysine [l-Lysine] 500 mg PO PRN PRN 09/22/23 10/11/23 Metoprolol Succinate [Toprol Xl] 25 mg PO DAILY 09/22/23 10/11/23 Amor Cole Rham 1 each PO DAILY 10/11/23 10/11/23 [Azo Complete Feminine Balance] Phenazopyridine HCl [Pyridium] 100 mg PO PRN PRN 10/11/23 10/11/23 cephALEXin [Keflex] 500 mg PO TID #15 cap 10/11/23 - Allergies Allergies/Adverse Reactions: Allergies Allergy/AdvReac Type Severity Reaction Status Date / Time aspirin [From Percodan] AdvReac Itching Verified 10/11/23 10:43 oxycodone [From Percodan] AdvReac Itching Verified 10/11/23 10:43 - Social History Does the pt smoke?: No Smoking Status: Never smoker Does the pt drink ETOH?: No Does the pt have substance abuse?: No - Immunizations Immunizations are current?: Yes - POLST Patient has POLST: No PD ED PE NORMAL - Vitals Vital signs reviewed: Yes - General General: Alert and oriented X 3, No acute distress, Well developed/nourished - Abdomen Abdomen: Soft, Non tender - Back Back: No CVA TTP - Derm Derm: Normal color, Warm and dry Results - Vitals Vitals: Oxygen O2 Source Room air - Labs Labs: Microbiology 10/11/23 11:04 Urine Culture - Preliminary Urine,Random Laboratory Tests 10/11/23 11:04 Urine Color RED/BLOODY Urine Clarity BLOODY Urine pH 6.0 Ur Specific [place] 1.015 Urine Protein 100 H Urine Glucose (UA) NEGATIVE Urine Ketones NEGATIVE Urine Occult Blood LARGE H Urine Nitrite POSITIVE H Urine Bilirubin NEGATIVE Urine Urobilinogen 0.2 (NORMAL) Ur Leukocyte Esterase TRACE H Urine RBC TNTC H Urine WBC 11-25 H Ur Squamous Epith Cells FEW Squamous Urine Bacteria Few Ur Microscopic Review INDICATED Urine Culture Comments INDICATED PD Medical Decision Making - ED course Complexity details: reviewed old records (skimmed surgical note from 10/01. Prior blood tests. ), reviewed results (Does have nitrates/leuks as well as blood. Consider infection vs inflammatory. Abx pending culture.), considered differential, d/w patient, d/w family, d/w erp implementation consultant (talked on phone with Dr. Patrick, who agreed likely timing of wet clot to come off with bleeding. No intervention as should stop on own. ) Departure - Departure Disposition: 01 Home, Self Care Clinical Impression: Hematuria, Pyuria Condition: Stable Record reviewed to determine appropriate education?: Yes Follow-Up: Abbie Coyne ARNP [Primary Care Provider] - Darnell Garcia MD [Provider Admit Priv/Credential] - Prescriptions: cephALEXin [Keflex] 500 mg PO TID #15 cap Comments: I talked with Dr. Garcia who agreed that it is timeframe likely a "wet clot" coming loose and causing blood vessel to bleed. This will be typically temporary and stop after a day or so. Commonly with even shorter than that. He agreed with looking for signs of infection. There was some white cells and nitrates which are indications for infection in the urine. This can be reactive to the procedure so the more definitive answer will be a urine culture. I will take a couple of days for the result so in the meantime would go with cephalexin antibiotic to cover for potential bladder infection. You did have a's moderate amount of urine still in the bladder. However your urologist said you had had about that amount in the bladder before this so we did not feel that you needed a catheter or such for drainage. The urology office will contact you in the next day or 2 to see how you are doing and likely will arrange a sooner follow-up appointment. Regular hydration and medication. I sent the prescription for your antibiotic to your preferred pharmacy. Forms: PCP List Discharge Date/Time: 10/11/23 13:08
[2023-10-11 12:21] LABS: BILIRUBIN,URINE NEGATIVE (NEGATIVE); GLUCOSE, URINE (UA) NEGATIVE (NEGATIVE); KETONES,URINE (UA) NEGATIVE (NEGATIVE); LEUKOCYTE ESTERASE, URINE TRACE (NEGATIVE); NITRITE,URINE POSITIVE (NEGATIVE); OCCULT BLOOD,URINE LARGE (NEGATIVE); PROTEIN,URINE 100 mg/dL (NEGATIVE); UROBILINOGEN,URINE 0.2 (NORMAL) E.U./dL (NORMAL)
[2023-10-11 12:26] LABS: BACTERIA,URINE Few /HPF (None Seen); CLARITY,URINE BLOODY (CLEAR); RBC,URINE TNTC /HPF (0-5); SQUAMOUS EPITHELIAL CELL,UR FEW Squamous (<= Few)
[2023-10-11] MEDS ORDERED: cephALEXin 250 MG CAPSULE PO STA (12:29)
[2023-10-11 13:08] VITALS: BP 158/72; O2SAT 100
--- NOTE | 2023-10-13 19:04 | ED Physician Documentation ---
ED Addendum - Addendum Addendum: 10/13/23 19:03 Urine culture reviewed. Patient was discharged on cephalexin and urine analysis culture is positive for Proteus which is resistant to cephalosporins. Will change antibiotics to ciprofloxacin. This prescription was [facility] to [facility]. Will have charge nurse to notify patient.
== END 2023-10-11 13:08 | disposition home or self-care (01) ==
LOC: ED 10:32
DX: R82.81 Pyuria (principal); R31.0 Gross hematuria; B96.4 Proteus (mirabilis) (morganii) as the cause of diseases classified elsewhere
CPT/HCPCS: 51798; 81001; 81003; 87077; 87086; 87181; 99283; 99284

== ENCOUNTER 2023-10-12 08:00 | Outpatient (CLI) | payer MEDICARE, MEDICAID | END 2023-10-12 23:59 | disposition home or self-care (01) | LOC: LAB 08:00 | PROVIDERS: ATTEND Urology | DX: R31.9 Hematuria, unspecified (principal) | CPT/HCPCS: 87077; 87086; 87181 ==